=== PATIENT | male | born 1940 | race Caucasian/White ===

== ENCOUNTER 2016-05-10 16:56 | Emergency (ER) | payer BC ==
[2016-05-10 17:22] VITALS: BP 159/94; PULSE 79; TEMP 98.7; BMI 29.3
--- NOTE | 2016-05-10 18:22 | PDOC ---
History of Present Illness - History of Present Illness Initial Comments: 05/10/16 19:05 Patient is a 75 year old male with significant medical hx of asthma, DM, HTN, HLD, hypothyroidism, and chronic back pain who is presenting to the ED with right flank pain since he woke up this morning. The patient complains of severe right sided flank pain that is non-radiating and aggravated with movement. The patient reports that the pain is so intense that he has difficulty moving. The patient states that this pain is unlike his chronic back pain and is not relieved with his Flector patch, which normally relieves his back pain. The patient also reports some lower abdominal groin pain that occurred two days before the onset of his flank pain. Denies fever, chills, nausea, vomiting, diarrhea, frequency, urgency, hesitency , or hematuria. 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 JOSHUA/HUGH) Cholecystectomy: No Lung Surgery: No Neurologic Surgery: No Orthopedic Surgery: Yes (BILATERAL ARTHROSCOPY,ELBOW SX.) - Psycho/Social/Smoking Cessation Hx Suicidal Ideation: No Smoking Status: No Smoking History: Former smoker Have you smoked in the past 12 months: No Number of Cigarettes Smoked Daily: 0 If you are a former smoker, when did you quit?: 1984 Information on smoking cessation initiated: No Hx Alcohol Use: No Drug/Substance Use Hx: No Substance Use Type: Alcohol Hx Substance Use Treatment: No <RosalesTeresa Davis - Last Filed: 05/11/16 17:15> - Past Medical History Allergies/Adverse Reactions: Allergies Allergy/AdvReac Type Severity Reaction Status Date / Time latex Allergy Severe Rash Verified 05/10/16 17:16 Latex, Natural Rubber Allergy Severe Rash Verified 05/10/16 17:16 Home Medications: Ambulatory Orders Metoprolol Tartrate [Lopressor] 25 mg PO DAILY 08/06/11 Allopurinol 100 mg PO DAILY #0 tablet 08/11/11 Aspirin [Baby Aspirin] 81 mg PO DAILY #0 tab.chew 08/11/11 Simvastatin [Zocor] 40 mg PO DAILY #0 tablet 08/11/11 Amlodipine Besylate [Norvasc] 5 mg PO DAILY 10/12/11 Levothyroxine [Synthroid] 25 mcg PO DAILY 10/12/11 Cinnamon Bark [Cinnamon] 1,000 mg PO DAILY 07/19/13 Escitalopram Oxalate [Lexapro -] 10 mg PO DAILY 07/19/13 Gemfibrozil 600 mg PO DAILY 07/19/13 Gluc/Ky-MSM#1/Vit C/Fausto/Bor [Juksixy-Lytyy-DZC Complex Cplt] 1 each PO DAILY 07/19/13 Valsartan [Diovan] 160 mg PO DAILY 07/19/13 Budesonide/Formeterol Fumarate [SYMBICORT 80/4.5mcg -] 1 inh PO DAILY 08/21/13 Pantoprazole Sodium [Protonix -] 40 mg PO DAILY #30 tablet.ec 08/22/13 Ranitidine [Zantac -] 150 mg PO DAILY #0 tablet 08/22/13 Review of Systems - Review of Systems Comments:: 05/10/16 19:07 CONSTITUTIONAL: Absent: fever, chills, diaphoresis, generalized weakness, malaise, loss of appetite HEENT: Absent: rhinorrhea, nasal congestion, throat pain, throat swelling, difficulty swallowing, mouth swelling, ear pain, eye pain, visual changes CARDIOVASCULAR: Absent: chest pain, syncope, palpitations, irregular heart rate, lightheadedness , peripheral edema RESPIRATORY: Absent: cough, shortness of breath, dyspnea with exertion, orthopnea, wheezing, stridor, hemoptysis GASTROINTESTINAL: Present: lower abdominal pain Absent: abdominal distension, nausea, vomiting, diarrhea, constipation, melena, hematochezia GENITOURINARY: Present: right flank pain Absent: dysuria, frequency, urgency, hesitancy, hematuria, genital pain MUSCULOSKELETAL: Absent: myalgia, arthralgia, joint swelling SKIN: Absent: rash, itching, pallor HEMATOLOGIC/IMMUNOLOGIC: Absent: easy bleeding, easy bruising, lymphadenopathy, frequent infections ENDOCRINE: Absent: unexplained weight gain, unexplained weight loss, heat intolerance, cold intolerance NEUROLOGIC: Absent: headache, focal weakness or paresthesia, dizziness, unsteady gait, seizure, mental status changes, bladder or bowel incontinence. PSYCHIATRIC: Absent: anxiety, depression, suicidal or homicidal ideation, hallucinations <Fanny Miranda - Last Filed: 05/11/16 01:52> *Physical Exam - Vital Signs Last Vital Signs Temp Pulse Resp BP Pulse Ox 98.7 F 79 18 159/94 96 05/10/16 17:16 05/10/16 17:16 05/10/16 17:16 05/10/16 17:16 05/10/16 17:16 - Physical Exam Comments: 05/10/16 19:08 GENERAL: Well developed, well nourished. Awake and alert. No acute distress. HEENT: Normocephalic, atraumatic. PERRLA, EOMI. No conjunctival pallor. Sclera are non- icteric. Moist mucous membranes. Oropharynx is clear. NECK: Supple. Full ROM. No JVD. Carotid pulses 2+ and symmetric, without bruits. No thyromegaly. No lymphadenopathy. CARDIOVASCULAR: Regular rate and rhythm. No murmurs, rubs, or gallops. Distal pulses are 2+ and symmetric. PULMONARY: No evidence of respiratory distress. Lungs clear to auscultation bilaterally. No wheezing, rales or rhonchi. ABDOMINAL: Soft. Non-tender. Non-distended. No rebound or guarding. No organomegaly. Normoactive bowel sounds. MUSCULOSKELETAL: Right flank tenderness. Normal range of motion at all joints. No bony deformities or tenderness. EXTREMITIES: No cyanosis. No clubbing. No edema. No calf tenderness. SKIN: Warm and dry. Normal capillary refill. No rashes. No jaundice. NEUROLOGICAL: Alert, awake, appropriate. Neurologically intact. Cranial nerves 2-12 intact. Normal speech. PSYCHIATRIC: Cooperative. Good eye contact. Appropriate mood and affect. <Fanny Miranda - Last Filed: 05/11/16 01:52> - Vital Signs Last Vital Signs Temp Pulse Resp BP Pulse Ox 98.7 F 79 18 159/94 96 05/10/16 17:16 05/10/16 17:16 05/10/16 17:16 05/10/16 17:16 05/10/16 17:16 <Teresa Caba - Last Filed: 05/11/16 17:15> ED Treatment Course - LABORATORY CBC & Chemistry Diagram: 05/10/16 18:45 05/10/16 18:45 - ADDITIONAL ORDERS Additional order review: 05/10/16 18:45 RBC 5.30 MCV 93.9 MCHC 32.3 RDW 13.1 MPV 9.4 Neutrophils % 72.8 Lymphocytes % 15.0 D Monocytes % 10.1 Eosinophils % 1.6 Basophils % 0.5 - RADIOLOGY Radiograph Interpretation: 05/11/16 01:07 CT/Abdomen & Pelvis Impression: There is no aneurysmal dilatation or dissection of the included portion of the distal thoracic aorta and the abdominal aorta down through its bifurcation including the right and left common iliac artery. No acute process in the abdomen and pelvis. There is no evidence of small bowel obstruction. Reported By: Chandrika Arizmendi MD Addendum: The kidneys were again reviewed. Both kidneys appear unremarkable with normal enhancement and without evidence of hydroureteronephrosis or stone, bilaterally. There is minimal stranding of the perinephric fat, bilaterally which is nonspecific. Diverticulosis coli with minimal is stranding around the mid sigmoid colon likely residual chronic changes from the prior examination dated 08/07/2011 and less likely representing very minimal/early acute diverticulitis. Correlate clinically for further evaluation. 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 -however this pain was unusual for him -it was not in the usual spot -he denies any chest pain,sob,nausea,vomiting,diarrhea,fever or chills He denied any recent trauma He denied any dysuria, hematuria,, bladder or bowel incontinence,saddle anesthesia 05/11/16 02:11 UA negative,no hematuria ct scan w constrast -there was no evidence of dissection or aneurysm , no kidney stones,no hydronephrorosis -pt given pain meds -he was reassessed but still feels "very sore" <Teresa Caba - Last Filed: 05/11/16 17:15> *DC/Admit/Observation/Transfer - Attestations Scribe Attestion: 05/10/16 19:11 Documentation prepared by Fanny Miranda, acting as curator medical museum for Teresa Caba MD. <Fanny Miranda - Last Filed: 05/11/16 01:52> <Teresa Caba - Last Filed: 05/11/16 17:15> Diagnosis at time of Disposition: Right flank pain - Discharge Dispostion Disposition: HOME - Referrals Referrals: German Maravilla MD [Primary Care Provider] - - Patient Instructions Printed Discharge Instructions: DI for Flank Pain
[2016-05-10] MEDS ORDERED: SODIUM CHLORIDE 1,000 ML IV STA (18:33)
[2016-05-10] MEDS ORDERED: HYDROmorphone HCL CARPU-JECT 1 MG/1 ML DISP.SYRIN IVPB ONE (18:33)
[2016-05-10] MEDS ORDERED: HYDROmorphone HCL CARPU-JECT 1 MG/1 ML DISP.SYRIN ONE (18:44)
[2016-05-10 18:54] LABS: BASOPHIL 0.5 % (0-2.0); EOSINOPHIL 1.6 % (0-4.5); MCH 30.3 pg (25.7-33.7); MCHC 32.3 g/dl (32.0-35.9); MEAN CELL VOLUME 93.9 fl (80-96); MEAN PLT VOLUME 9.4 fl (7.5-11.1); NEUTROPHILS 72.8 % (42.8-82.8); PLATELET COUNT 210 K/MM3 (134-434); RDW 13.1 % (11.9-15.9); WHITE BLOOD COUNT 12.5 K/mm3 (4.0-10.0)
[2016-05-10 19:33] LABS: ALBUMIN 4.4 g/dl (3.4-5.0); ALK PHOS 42 U/L (45-117); ANION GAP 8 (8-16); BILIRUBIN,TOTAL 0.4 mg/dL (0.2-1.0); CALCIUM 9.7 mg/dL (8.5-10.1); CO2 28 mmol/L (21-32); CREATININE 0.9 mg/dL (0.7-1.3); GLUCOSE,RANDOM 107 mg/dL (74-106); SGOT/AST 16 U/L (15-37); SGPT/ALT 29 U/L (12-78); TOT PROT 7.5 g/dl (6.4-8.2)
[2016-05-10 19:40] LABS: INR 1.06 (0.82-1.09); PROTHROMBIN TIME (PATIENT) 11.7 SEC (9.98-11.88)
[2016-05-10 23:21] LABS: PH,URINE 5.5 (5.0-8.0); URINE APPEARANCE CLEAR; URINE BILIRUBIN NEGATIVE (NEGATIVE); URINE BLOOD NEGATIVE (NEGATIVE); URINE COLOR LT. YELLOW; URINE GLUCOSE (UA) NEGATIVE (NEGATIVE); URINE KETONE NEGATIVE (NEGATIVE); URINE LEUK ESTERASE NEGATIVE (NEGATIVE); URINE NITRITE NEGATIVE (NEGATIVE); URINE PROTEIN NEGATIVE (NEGATIVE); URINE UROBILINOGEN 0.2 E.U/dl E.U./dl (0.2-1.0)
[2016-05-11] MEDS ORDERED: KETOROLAC TROMETHAMINE 60 MG/2 ML VIAL IM ONE (00:13)
[2016-05-11] MEDS ORDERED: diazePAM 5 MG TABLET PO ONE (00:13)
[2016-05-11] MEDS ORDERED: KETOROLAC TROMETHAMINE 60 MG/2 ML VIAL ONE (00:28)
[2016-05-11] MEDS ORDERED: diazePAM 5 MG TABLET ONE (00:28)
[2016-05-11] MEDS ORDERED: CYCLOBENZAPRINE HCL 10 MG TABLET (FP) PO ONE (01:48)
--- NOTE | 2016-05-11 05:30 | PDOC ---
*Physical Exam - Vital Signs Last Vital Signs Temp Pulse Resp BP Pulse Ox 98.7 F 79 18 159/94 96 05/10/16 17:16 05/10/16 17:16 05/10/16 17:16 05/10/16 17:16 05/10/16 17:16 ED Treatment Course - LABORATORY CBC & Chemistry Diagram: 05/10/16 18:45 05/10/16 18:45 - ADDITIONAL ORDERS Additional order review: Laboratory Results 05/10/16 05/10/16 05/10/16 23:03 19:00 18:45 INR 1.06 Sodium 139 Potassium 4.2 Chloride 103 Carbon Dioxide 28 Anion Gap 8 BUN 17 D Creatinine 0.9 Creat Clearance w eGFR > 60 Random Glucose 107 H Calcium 9.7 Total Bilirubin 0.4 D AST 16 ALT 29 Alkaline Phosphatase 42 L Total Protein 7.5 Albumin 4.4 Urine Color Lt. yellow Urine Appearance Clear Urine pH 5.5 Ur Specific Donna 1.020 Urine Protein Negative Urine Glucose (UA) Negative Urine Ketones Negative Urine Blood Negative Urine Nitrite Negative Urine Bilirubin Negative Urine Urobilinogen 0.2 e.u/dl Ur Leukocyte Esterase Negative 05/10/16 18:45 RBC 5.30 MCV 93.9 MCHC 32.3 RDW 13.1 MPV 9.4 Neutrophils % 72.8 Lymphocytes % 15.0 D Monocytes % 10.1 Eosinophils % 1.6 Basophils % 0.5 - Medications Given in the ED: ED Medications Discontinued Medications Generic Name Dose Route Start Last Admin Trade Name Freq PRN Reason Stop Dose Admin Cyclobenzaprine HCl 10 mg 05/11/16 01:48 05/11/16 02:04 Flexeril - PO 05/11/16 01:49 10 mg ONCE ONE Administration Diazepam 5 mg 05/11/16 00:13 05/11/16 00:35 Valium - PO 05/11/16 00:14 5 mg ONCE ONE Administration Hydromorphone HCl 1 mg 05/10/16 18:33 05/10/16 18:47 Dilaudid Injection - IVPB 05/10/16 18:34 1 mg ONCE ONE Administration Sodium Chloride 1,000 mls @ 1,000 mls/hr 05/10/16 18:33 05/10/16 18:48 Normal Saline - IV 05/10/16 19:32 1,000 mls/hr ASDIR STA Administration Ketorolac Tromethamine 60 mg 05/11/16 00:13 05/11/16 00:35 Toradol Injection - IM 05/11/16 00:14 60 mg ONCE ONE Administration *DC/Admit/Observation/Transfer Diagnosis at time of Disposition: Right flank pain - Discharge Dispostion Disposition: HOME Condition at time of disposition: Stable Admit: No - Referrals Referrals: German Maravilla MD [Primary Care Provider] - - Patient Instructions Printed Discharge Instructions: DI for Flank Pain - Post Discharge Activity
[2016-05-11] MEDS ORDERED: KETOROLAC TROMETHAMINE 30 MG/1 ML VIAL IVPUSH ONE (05:32)
[2016-05-11] MEDS ORDERED: KETOROLAC TROMETHAMINE 30 MG/1 ML VIAL ONE (05:33)
== END 2016-05-11 05:37 | disposition home or self-care (01) ==
LOC: JER 16:56
PROC: 3E0337Z Introduction of Electrolytic and Water Balance Substance into Peripheral Vein, Percutaneous Approach (ICD-10-PCS; principal; 2016-05-10)
PROC: 3E0233Z Introduction of Anti-inflammatory into Muscle, Percutaneous Approach (ICD-10-PCS; 2016-05-10)
PROC: 3E033NZ Introduction of Analgesics, Hypnotics, Sedatives into Peripheral Vein, Percutaneous Approach (ICD-10-PCS; 2016-05-10)
DX: R10.31 Right lower quadrant pain (principal); I10 Essential (primary) hypertension; E11.9 Type 2 diabetes mellitus without complications; E78.00 Pure hypercholesterolemia, unspecified; E03.9 Hypothyroidism, unspecified
CPT/HCPCS: 36415; 74174-TC; 80053; 81003; 85025; 85610; 96361; 96372; 96374; 99282-25

== ENCOUNTER 2016-06-26 21:39 | Emergency (ER) | payer BC ==
[2016-06-26 21:45] VITALS: BP 138/74; PULSE 77; BMI 29.3
--- NOTE | 2016-06-26 22:14 | PDOC ---
[id number] 75 year old male with significant medical hx of asthma, GERD, DM, HTN, HLD, hypothyroidism, and chronic back pain who is presenting to the ED after an incident where the patient choked and fainted. This evening the patient choked on a piece of meat. He bent over the sink trying to cough it up, when he felt some of it come up and he passed out. The patient hit his head on the tile floor and regained consciousness moments later. He complains of swelling to the back of his head. The patient is not on any blood thinners. Denies chest pain, nausea and vomiting. Grain Drier Operator: Marisela Hill MD PCP: German Maravilla MD Surgical Hx: Bilateral arthroscopy, elbow surgery, bilateral inguinal hernia, stent x1 <Fanny Miranda - Last Filed: 06/27/16 00:08> <Deng David - Last Filed: 06/27/16 17:35> - General Chief Complaint: Choking Sensation Stated Complaint: SYNCOPE/HEAD INJURY Time Seen by Provider: 06/26/16 22:14 Past History <Fanny Miranda - Last Filed: 06/27/16 00:08> - Past Medical History Anemia: No Asthma: Yes (RARELY USES VENTOLIN OR SYMBICORT) Cancer: No Cardiac Disorders: No CVA: No COPD: No CHF: No Dementia: No Diabetes: Yes (NIDDM-NO MEDS X 6 MONTHS) GI Disorders: Yes (HX.COLON POLYP; DIVERTICULOSIS) Disorders: No HTN: Yes Hypercholesterolemia: Yes Liver Disease: No Seizures: No Thyroid Disease: Yes (HYPOTHYROID DISEASE) - Surgical History Abdominal Surgery: Yes (BILATERAL INGUINAL HERNIA) Appendectomy: No Cardiac Surgery: Yes (STENT X1 2006-LAST STRESS [address] JOSHUA/HUGH) Cholecystectomy: No Lung Surgery: No Neurologic Surgery: No Orthopedic Surgery: Yes (BILATERAL ARTHROSCOPY,ELBOW SX.) - Psycho/Social/Smoking Cessation Hx Suicidal Ideation: No Smoking Status: No Smoking History: Never smoked Have you smoked in the past 12 months: No Number of Cigarettes Smoked Daily: 0 If you are a former smoker, when did you quit?: 1984 Information on smoking cessation initiated: No Hx Alcohol Use: No Drug/Substance Use Hx: No Substance Use Type: Alcohol Hx Substance Use Treatment: No <Deng David - Last Filed: 06/27/16 17:35> - Past Medical History Allergies/Adverse Reactions: Allergies Allergy/AdvReac Type Severity Reaction Status Date / Time latex Allergy Severe Rash Verified 06/26/16 21:44 Latex, Natural Rubber Allergy Severe Rash Verified 06/26/16 21:44 Home Medications: Ambulatory Orders Metoprolol Tartrate [Lopressor] 25 mg PO DAILY 08/06/11 Allopurinol 100 mg PO DAILY #0 tablet 08/11/11 Aspirin [Baby Aspirin] 81 mg PO DAILY #0 tab.chew 08/11/11 Simvastatin [Zocor] 40 mg PO DAILY #0 tablet 08/11/11 Amlodipine Besylate [Norvasc] 5 mg PO DAILY 10/12/11 Levothyroxine [Synthroid] 25 mcg PO DAILY 10/12/11 Cinnamon Bark [Cinnamon] 1,000 mg PO DAILY 07/19/13 Escitalopram Oxalate [Lexapro -] 10 mg PO DAILY 07/19/13 Gemfibrozil 600 mg PO DAILY 07/19/13 Gluc/Ky-MSM#1/Vit C/Fausto/Bor [Kugjwgx-Xeilm-XHO Complex Cplt] 1 each PO DAILY 07/19/13 Valsartan [Diovan] 160 mg PO DAILY 07/19/13 Budesonide/Formeterol Fumarate [SYMBICORT 80/4.5mcg -] 1 inh PO DAILY 08/21/13 Pantoprazole Sodium [Protonix -] 40 mg PO DAILY #30 tablet.ec 08/22/13 Ranitidine [Zantac -] 150 mg PO DAILY #0 tablet 08/22/13 Review of Systems - Review of Systems Comments:: 06/26/16 22:33 CONSTITUTIONAL: Absent: fever, chills, diaphoresis, generalized weakness, malaise, loss of appetite HEENT: Present: swelling to the back of his head Absent: rhinorrhea, nasal congestion, throat pain, throat swelling, difficulty swallowing, mouth swelling, ear pain, eye pain, visual changes CARDIOVASCULAR: Absent: chest pain, syncope, palpitations, irregular heart rate, lightheadedness , peripheral edema RESPIRATORY: Absent: cough, shortness of breath, dyspnea with exertion, orthopnea, wheezing, stridor, hemoptysis GASTROINTESTINAL: Absent: abdominal pain, abdominal distension, nausea, vomiting, diarrhea, constipation, melena, hematochezia GENITOURINARY: Absent: dysuria, frequency, urgency, hesitancy, hematuria, flank pain, genital pain MUSCULOSKELETAL: Absent: myalgia, arthralgia, joint swelling SKIN: Absent: rash, itching, pallor HEMATOLOGIC/IMMUNOLOGIC: Absent: easy bleeding, easy bruising, lymphadenopathy, frequent infections ENDOCRINE: Absent: unexplained weight gain, unexplained weight loss, heat intolerance, cold intolerance NEUROLOGIC: Present: loss of consciousness Absent: headache, focal weakness or paresthesia, dizziness, unsteady gait, seizure, mental status changes, bladder or bowel incontinence. PSYCHIATRIC: Absent: anxiety, depression, suicidal or homicidal ideation, hallucinations <Fanny Miranda - Last Filed: 06/27/16 00:08> *Physical Exam - Vital Signs Last Vital Signs Temp Pulse Resp BP Pulse Ox 77 18 138/74 99 06/26/16 21:42 06/26/16 21:42 06/26/16 21:42 06/26/16 21:42 - Physical Exam Comments: 06/26/16 22:34 GENERAL: Well developed, well nourished. Awake and alert. No acute distress. HEENT: Normocephalic. Bruising to the left occiput. PERRLA, EOMI. No conjunctival pallor. Sclera are non-icteric. Moist mucous membranes. Oropharynx is clear. NECK: Supple. Full ROM. No JVD. Carotid pulses 2+ and symmetric, without bruits. No thyromegaly. No lymphadenopathy. CARDIOVASCULAR: Regular rate and rhythm. No murmurs, rubs, or gallops. Distal pulses are 2+ and symmetric. PULMONARY: No evidence of respiratory distress. Lungs clear to auscultation bilaterally. No wheezing, rales or rhonchi. ABDOMINAL: Soft. Non-tender. Non-distended. No rebound or guarding. No organomegaly. Normoactive bowel sounds. MUSCULOSKELETAL: Normal range of motion at all joints. No bony deformities or tenderness. No CVA tenderness. EXTREMITIES: No cyanosis. No clubbing. No edema. No calf tenderness. SKIN: Warm and dry. Normal capillary refill. No rashes. No jaundice. NEUROLOGICAL: Alert, awake, appropriate. Cranial nerves 2-12 intact. Normal speech. Gait is normal without ataxia. PSYCHIATRIC: Cooperative. Good eye contact. Appropriate mood and affect. <Fanny Miranda - Last Filed: 06/27/16 00:08> - Vital Signs Last Vital Signs Temp Pulse Resp BP Pulse Ox 77 18 138/74 99 06/26/16 21:42 06/26/16 21:42 06/26/16 21:42 06/26/16 21:42 <CesarfabbyDeng zhong - Last Filed: 06/27/16 17:35> Heart Score/ECG Review #1 06/26/16 23:12 Normal sinus rhythm at 71 bpm Right bundle branch block Abnormal ECG <Fanny Miranda - Last Filed: 06/27/16 00:08> ED Treatment Course - LABORATORY CBC & Chemistry Diagram: 06/26/16 22:30 06/26/16 22:30 - RADIOLOGY Radiograph Interpretation: 06/27/16 00:09 Platform Power Technician: (tracy) Report Date: 06/26/2016 23:22:00 Report Status: Preliminary Begin of Report Content Referring Physician: Dung Gan Patient Name: Ebonie Mendez THIS IS A PRELIMINARYREPORT FROM IMAGING TELEGRAPHIC INSTRUMENT SUPERVISOR EXAM: CT brain without contrast IMAGES: 70 INDICATION: Severe headache DATE OF SERVICE: 2016-06-26 23:22:47.0 COMPARISON: none FINDINGS: The ventricular system is midline and nondilated. The sulcal pattern is normal for the patient's age. Minimal small vessel ischemic changes are noted. There is no bleed, mass, extra-axial fluid collection or mass effect. No skull fracture or skull lesion is identified. The visualized paranasal sinuses and mastoid air cells are clear other than minimal sinus mucosal thickening. IMPRESSION: No evidence of acute pathology. THIS DOCUMENT HAS BEEN ELECTRONICALLY SIGNED Pool Swanson MD 06/26/2016 23:40 EST M.D. Please call Imaging Cardroom Manager [phone] ([phone]) with questions. End of Report Content <Fanny Miranda - Last Filed: 06/27/16 00:08> - LABORATORY CBC & Chemistry Diagram: 06/26/16 22:30 06/26/16 22:30 <Deng David - Last Filed: 06/27/16 17:35> *DC/Admit/Observation/Transfer - Attestations Scribe Attestion: 06/26/16 22:35 Documentation prepared by Fanny Miranda, acting as medical resident for Deng David MD. <Fanny Miranda - Last Filed: 06/27/16 00:08> - Discharge Dispostion Admit: No <Deng David - Last Filed: 06/27/16 17:35> Diagnosis at time of Disposition: Falls, Injury of head Syncope Qualifiers: Syncope type: vasovagal syncope Qualified Code(s): R55 - Syncope and collapse - Discharge Dispostion Disposition: AGAINST MEDICAL ADVICE Condition at time of disposition: Guarded - Referrals Referrals: German Maravilla MD [Primary Care Provider] - - Patient Instructions Printed Discharge Instructions: DI for Syncope in Adults (Fainting), DI for Closed Head Injury Additional Instructions: you are signing out against medical advice; see your doctor Tuesday. If you change your mind, please return to the ED.
[2016-06-26 23:06] LABS: BASOPHIL 0.7 % (0-2.0); EOSINOPHIL 3.1 % (0-4.5); MCH 32.2 pg (25.7-33.7); MCHC 34.7 g/dl (32.0-35.9); MEAN CELL VOLUME 92.7 fl (80-96); MEAN PLT VOLUME 9.1 fl (7.5-11.1); NEUTROPHILS 64.1 % (42.8-82.8); PLATELET COUNT 197 K/MM3 (134-434); RDW 13.2 % (11.9-15.9); WHITE BLOOD COUNT 10.7 K/mm3 (4.0-10.0)
[2016-06-26 23:35] LABS: ALBUMIN 3.9 g/dl (3.4-5.0); ANION GAP 10 (8-16); BILIRUBIN,TOTAL 0.4 mg/dL (0.2-1.0); CALCIUM 8.9 mg/dL (8.5-10.1); CO2 28 mmol/L (21-32); CREATININE 1.1 mg/dL (0.7-1.3); GLUCOSE,RANDOM 162 mg/dL (74-106); SGOT/AST 20 U/L (15-37); SGPT/ALT 36 U/L (12-78); TOT PROT 6.9 g/dl (6.4-8.2)
[2016-06-26 23:37] LABS: ALK PHOS 43 U/L (45-117); TROPONIN I < 0.02 ng/ml (0.00-0.05)
[2016-06-27] MEDS ORDERED: ACETAMINOPHEN 325 MG TABLET (FP) ONE (01:04)
--- NOTE | 2016-06-27 18:14 | EKG ---
Test Reason : Blood Pressure : / mmHG Vent. Rate : 071 BPM Atrial Rate : 071 BPM P-R Int : 158 ms QRS Dur : 136 ms QT Int : 400 ms P-R-T Axes : 070 071 052 degrees QTc Int : 434 ms NORMAL SINUS RHYTHM RIGHT BUNDLE BRANCH BLOCK ABNORMAL ECG WHEN COMPARED WITH ECG OF 05-AUG-2011 18:21, NO SIGNIFICANT CHANGE WAS FOUND Confirmed by FROILAN BUSBY MD ([id number]) on 06/27/2016 6:14:02 PM Referred By: Confirmed By:FROILAN BUSBY MD
== END 2016-06-27 03:25 | disposition left against medical advice (07) ==
LOC: JER 21:39
DX: S09.8XXA Other specified injuries of head, initial encounter (principal); R55 Syncope and collapse; S00.03XA Contusion of scalp, initial encounter; T17.828A Food in other parts of respiratory tract causing other injury, initial encounter; W01.198A Fall on same level from slipping, tripping and stumbling with subsequent striking against other object, initial encounter; I10 Essential (primary) hypertension; E11.9 Type 2 diabetes mellitus without complications; E78.00 Pure hypercholesterolemia, unspecified; J45.909 Unspecified asthma, uncomplicated; E03.9 Hypothyroidism, unspecified; Z95.5 Presence of coronary angioplasty implant and graft; Z87.891 Personal history of nicotine dependence
CPT/HCPCS: 36415; 70450-TC; 71010-TC; 80053; 82550; 84484; 85025; 93005; 93010; 99282-25

== ENCOUNTER 2016-09-14 16:04 | Emergency (ER) | payer BC ==
[2016-09-14 16:15] VITALS: BP 154/85; PULSE 91; TEMP 97.6; BMI 29.0
[2016-09-14] MEDS ORDERED: KETOROLAC TROMETHAMINE 30 MG/1 ML VIAL ONE (17:31)
[2016-09-14] MEDS ORDERED: diazePAM 5 MG TABLET ONE (17:32)
--- NOTE | 2016-09-14 17:45 | PDOC ---
History of Present Illness - General Chief Complaint: Pain, Acute Stated Complaint: STIFF NECK/BACK Time Seen by Provider: 09/14/16 16:44 History Source: Patient - History of Present Illness Timing/Duration: getting worse Associated Symptoms: denies: fever/chills, headaches, nausea/vomiting, weakness Past History - Past Medical History Allergies/Adverse Reactions: Allergies Allergy/AdvReac Type Severity Reaction Status Date / Time latex Allergy Severe Rash Verified 09/14/16 16:15 Latex, Natural Rubber Allergy Severe Rash Verified 09/14/16 16:15 Home Medications: Ambulatory Orders Metoprolol Tartrate [Lopressor] 25 mg PO DAILY 08/06/11 Allopurinol 100 mg PO DAILY #0 tablet 08/11/11 Aspirin [Baby Aspirin] 81 mg PO DAILY #0 tab.chew 08/11/11 Simvastatin [Zocor] 40 mg PO DAILY #0 tablet 08/11/11 Amlodipine Besylate [Norvasc] 5 mg PO DAILY 10/12/11 Levothyroxine [Synthroid] 25 mcg PO DAILY 10/12/11 Cinnamon Bark [Cinnamon] 1,000 mg PO DAILY 07/19/13 Escitalopram Oxalate [Lexapro -] 10 mg PO DAILY 07/19/13 Gemfibrozil 600 mg PO DAILY 07/19/13 Gluc/Ky-MSM#1/Vit C/Fausto/Bor [Ergdzgq-Lgiyp-GQN Complex Cplt] 1 each PO DAILY 07/19/13 Valsartan [Diovan] 160 mg PO DAILY 07/19/13 Budesonide/Formeterol Fumarate [SYMBICORT 80/4.5mcg -] 1 inh PO DAILY 08/21/13 Pantoprazole Sodium [Protonix -] 40 mg PO DAILY #30 tablet.ec 08/22/13 Ranitidine [Zantac -] 150 mg PO DAILY #0 tablet 08/22/13 Tramadol HCl 50 mg PO Q6H #15 tablet MDD 200 mg 09/14/16 Anemia: No Asthma: Yes (RARELY USES VENTOLIN OR SYMBICORT) Cancer: No Cardiac Disorders: No CVA: No COPD: No CHF: No Dementia: No Diabetes: Yes (NIDDM-NO MEDS X 6 MONTHS) GI Disorders: Yes (HX.COLON POLYP; DIVERTICULOSIS) Disorders: No HTN: Yes Hypercholesterolemia: Yes Liver Disease: No Seizures: No Thyroid Disease: Yes (HYPOTHYROID DISEASE) - Surgical History Abdominal Surgery: Yes (BILATERAL INGUINAL HERNIA) Appendectomy: No Cardiac Surgery: Yes (STENT X1 2006-LAST STRESS [address] JOSHUA/HUGH) Cholecystectomy: No Lung Surgery: No Neurologic Surgery: No Orthopedic Surgery: Yes (BILATERAL ARTHROSCOPY,ELBOW SX.) - Psycho/Social/Smoking Cessation Hx Suicidal Ideation: No Smoking Status: No Smoking History: Never smoked Have you smoked in the past 12 months: No Number of Cigarettes Smoked Daily: 0 If you are a former smoker, when did you quit?: 1984 Information on smoking cessation initiated: No Hx Alcohol Use: No Drug/Substance Use Hx: No Substance Use Type: Alcohol Hx Substance Use Treatment: No Review of Systems - Review of Systems Constitutional: No: Chills, Fever ABD/GI: No: Nausea, Vomiting Musculoskeletal: Yes: Neck Pain Neurological: No: Headache, Numbness, Tingling, Weakness, Dizziness *Physical Exam - Vital Signs Last Vital Signs Temp Pulse Resp BP Pulse Ox 97.6 F 91 H 18 154/85 98 09/14/16 16:12 09/14/16 16:12 09/14/16 16:12 09/14/16 16:12 09/14/16 16:12 - Physical Exam Comments: 09/14/16 17:45 appears uncomfortable General Appearance: Yes: Appropriately Dressed HEENT: positive: Normal Voice Neck: positive: Tender (+ttp to lateral aspect of neck b/l, LROM 2/2 pain, upper extremity strength intact b/l). negative: Lymphadenopathy (R), Lymphadenopathy (L) Respiratory/Chest: negative: Respiratory Distress Integumentary: positive: Dry, Warm Neurologic: positive: Fully Oriented, Alert, Normal Mood/Affect, Motor Strength 5/5 Medical Decision Making - Medical Decision Making 09/14/16 17:34 75-year-old male, history of hypertension, hypercholesterolemia, CAD with stent x 1, diabetes, chronic lower back pain, presents to ED with neck pain. Patient states he awoke with pain to posterior aspect of neck diffusely this a.m, worse with any movement. Taking Aleve with no relief. States pain has progressively worsened throughout the day. No headache, dizziness, visual changes, n/v, upper extremity sensory changes, extremity weakness, URI symptoms, fever or chill. See exam Neck pain on awakening this am No red flags on exam, i.e radiculopathy, infxn, dissection, etc M/l MSK -pain meds, reassess 09/14/16 17:49 09/14/16 19:04 Pt reports improvement in pain. Stable for discharge at this time *DC/Admit/Observation/Transfer Diagnosis at time of Disposition: Neck strain Qualifiers: Encounter type: initial encounter Qualified Code(s): S16.1XXA - Strain of muscle, fascia and tendon at neck level, initial encounter - Discharge Dispostion Disposition: HOME Condition at time of disposition: Good - Prescriptions Prescriptions: Tramadol HCl 50 mg PO Q6H #15 tablet MDD 200 mg - Patient Instructions Printed Discharge Instructions: Muscle Strain Additional Instructions: Take medication as directed Please follow up with your PMD
[2016-09-14] MEDS ORDERED: diazePAM 5 MG TABLET PO ONE ×2 (17:56→18:21)
[2016-09-14] MEDS ORDERED: KETOROLAC TROMETHAMINE 30 MG/1 ML VIAL IM ONE ×2 (17:57→18:21)
[2016-09-14] MEDS ORDERED: traMADol HCL 50 MG TABLET PO ONE (18:21)
[2016-09-14] MEDS ORDERED: traMADol HCL 50 MG TABLET ONE (18:23)
== END 2016-09-14 19:18 | disposition home or self-care (01) ==
LOC: JERFT 16:04
PROC: 3E0233Z Introduction of Anti-inflammatory into Muscle, Percutaneous Approach (ICD-10-PCS; principal; 2016-09-14)
PROC: 3E0233Z Introduction of Anti-inflammatory into Muscle, Percutaneous Approach (ICD-10-PCS; 2016-09-14)
DX: S16.1XXA Strain of muscle, fascia and tendon at neck level, initial encounter (principal); I25.10 Atherosclerotic heart disease of native coronary artery without angina pectoris; I10 Essential (primary) hypertension; Z95.5 Presence of coronary angioplasty implant and graft; E11.9 Type 2 diabetes mellitus without complications; Z79.84 Long term (current) use of oral hypoglycemic drugs; E78.00 Pure hypercholesterolemia, unspecified; E03.9 Hypothyroidism, unspecified; M54.5 Low back pain; G89.29 Other chronic pain
CPT/HCPCS: 96372; 99281-25

== ENCOUNTER 2016-09-16 06:47 | Emergency (ER) | payer BC ==
[2016-09-16 07:11] VITALS: PULSE 84; BMI 29.0
[2016-09-16] MEDS ORDERED: OXYCODONE/APAP 5/325MG COMBO TABLET PO ONE (07:55)
[2016-09-16] MEDS ORDERED: diazePAM 5 MG TABLET PO ONE (07:55)
[2016-09-16] MEDS ORDERED: OXYCODONE/APAP 5/325MG COMBO TABLET ONE (08:00)
[2016-09-16] MEDS ORDERED: diazePAM 5 MG TABLET ONE (08:00)
--- NOTE | 2016-09-16 08:52 | PDOC ---
History of Present Illness - General Chief Complaint: Pain Stated Complaint: NECK PAIN Time Seen by Provider: 09/16/16 07:34 History Source: Patient Exam Limitations: No Limitations - History of Present Illness Initial Comments: 09/16/16 08:49 75-year-old male presents to the emergency room with complaints of continual neck stiffness. Patient states was seen here 2 days ago and was given an injection including a muscle relaxer which seemed to alleviate his symptoms slightly but when he went home to take the tramadol he says symptoms returned. Patient states he awoke with this discomfort 2 days ago and feels tight sharp feeling with movement in any direction. Patient denies headache, dizziness, nausea, visual changes, fever, difficulty swallowing, chest pain or shortness of breath. Patient denies rash or swelling to the area. Patient states has history of back spasms due to herniation and has had a similar episode to his cervical region but did not last this long. Timing/Duration: other Severity: moderate Associated Symptoms: denies: denies symptoms Past History - Past Medical History Allergies/Adverse Reactions: Allergies Allergy/AdvReac Type Severity Reaction Status Date / Time latex Allergy Severe Rash Verified 09/16/16 07:09 Latex, Natural Rubber Allergy Severe Rash Verified 09/16/16 07:09 Home Medications: Ambulatory Orders Metoprolol Tartrate [Lopressor] 25 mg PO DAILY 08/06/11 Allopurinol 100 mg PO DAILY #0 tablet 08/11/11 Aspirin [Baby Aspirin] 81 mg PO DAILY #0 tab.chew 08/11/11 Simvastatin [Zocor] 40 mg PO DAILY #0 tablet 08/11/11 Amlodipine Besylate [Norvasc] 5 mg PO DAILY 10/12/11 Levothyroxine [Synthroid] 25 mcg PO DAILY 10/12/11 Cinnamon Bark [Cinnamon] 1,000 mg PO DAILY 07/19/13 Escitalopram Oxalate [Lexapro -] 10 mg PO DAILY 07/19/13 Gemfibrozil 600 mg PO DAILY 07/19/13 Gluc/Ky-MSM#1/Vit C/Fausto/Bor [Ltpakrj-Cbsdv-WQJ Complex Cplt] 1 each PO DAILY 07/19/13 Valsartan [Diovan] 160 mg PO DAILY 07/19/13 Budesonide/Formeterol Fumarate [SYMBICORT 80/4.5mcg -] 1 inh PO DAILY 08/21/13 Pantoprazole Sodium [Protonix -] 40 mg PO DAILY #30 tablet.ec 08/22/13 Ranitidine [Zantac -] 150 mg PO DAILY #0 tablet 08/22/13 Tramadol HCl 50 mg PO Q6H #15 tablet MDD 200 mg 09/14/16 Anemia: No Asthma: Yes (RARELY USES VENTOLIN OR SYMBICORT) Cancer: No Cardiac Disorders: No CVA: No COPD: No CHF: No Dementia: No Diabetes: Yes (NIDDM-NO MEDS X 6 MONTHS) GI Disorders: Yes (HX.COLON POLYP; DIVERTICULOSIS) Disorders: No HTN: Yes Hypercholesterolemia: Yes Liver Disease: No Seizures: No Thyroid Disease: Yes (HYPOTHYROID DISEASE) - Surgical History Abdominal Surgery: Yes (BILATERAL INGUINAL HERNIA) Appendectomy: No Cardiac Surgery: Yes (STENT X1 2006-LAST STRESS [address] JOSHUA/HUGH) Cholecystectomy: No Lung Surgery: No Neurologic Surgery: No Orthopedic Surgery: Yes (BILATERAL ARTHROSCOPY,ELBOW SX.) - Psycho/Social/Smoking Cessation Hx Anxiety: No Suicidal Ideation: No Smoking Status: No Smoking History: Never smoked Have you smoked in the past 12 months: No Number of Cigarettes Smoked Daily: 0 If you are a former smoker, when did you quit?: 1984 Information on smoking cessation initiated: No Hx Alcohol Use: No Drug/Substance Use Hx: No Substance Use Type: Alcohol Hx Substance Use Treatment: No Patient Lives Alone: No Review of Systems - Review of Systems Able to Perform ROS?: Yes Constitutional: No: Symptoms Reported HEENTM: No: Symptoms Reported Respiratory: No: Symptoms reported Cardiac (ROS): No: Symptoms Reported : No: Frequency Musculoskeletal: Yes: Neck Pain, Joint Stiffness Integumentary: No: Symptoms Reported Neurological: No: Headache, Numbness, Dizziness Endocrine: No: Symptoms Reported Hematologic/Lymphatic: No: Symptoms Reported *Physical Exam - Vital Signs Last Vital Signs Temp Pulse Resp BP Pulse Ox 97.5 F L 84 18 131/83 99 09/16/16 07:09 09/16/16 07:09 09/16/16 07:09 09/16/16 07:09 09/16/16 07:09 - Physical Exam General Appearance: Yes: Nourished, Appropriately Dressed. No: Apparent Distress HEENT: positive: EOMI, JANETH, Pharynx Normal. negative: Pale Conjunctivae Neck: positive: Tender (bilateral SCM), Supple, Decreased range of motion ( unable to rotate, flex or hyperextend) Respiratory/Chest: positive: Lungs Clear, Normal Breath Sounds. negative: Respiratory Distress, Accessory Muscle Use Cardiovascular: positive: Regular Rhythm, Regular Rate. negative: Murmur Integumentary: positive: Normal Color, Warm, Moist Neurologic: positive: Motor Strength 5/5 (ambulatory) ED Treatment Course - RADIOLOGY Radiology Studies Ordered: Category Date Time Status SPINE-CERVICAL [RAD] Stat Radiology 09/16/16 07:56 Taken - Medications Given in the ED: ED Medications Discontinued Medications Generic Name Dose Route Start Last Admin Trade Name Freq PRN Reason Stop Dose Admin Diazepam 5 mg 09/16/16 07:55 09/16/16 08:10 Valium - PO 09/16/16 07:56 5 mg ONCE ONE Administration Oxycodone/Acetaminophen 1 combo 09/16/16 07:55 09/16/16 08:10 Percocet 5/325 - PO 09/16/16 07:56 1 combo ONCE ONE Administration Medical Decision Making - Medical Decision Making 09/16/16 08:57 Patient here continual neck stiffness the past 2 days. Patient states the child although he was sent home with is not alleviating his symptoms and is requesting something stronger. Pt ordered for Valium and Percocet along with a cervical x-ray. 09/16/16 09:13 X-ray shows no acute bony abnormalities. There is multilevel chronic degenerative discogenic disease , facet joint after his bath he with mild degenerative and spondylolisthesis at C3, C4 C5 C6. Patient will be discharged home with Percocet and Valium along with supportive care. *DC/Admit/Observation/Transfer Diagnosis at time of Disposition: Stiff neck - Discharge Dispostion Disposition: HOME Condition at time of disposition: Improved - Referrals Referrals: Petar Moralez MD [Staff Physician] - German Maravilla MD [Primary Care Provider] - - Patient Instructions Printed Discharge Instructions: DI for Neck Pain Additional Instructions: I recommend you continue Valium for the next 3 days twice a day along with the Percocet. Also please provide your neck with support either with a pillow or with the neck brace that you have at home for the next 3 days
[2016-09-16 09:28] VITALS: BP 140/84; TEMP 98.1
== END 2016-09-16 09:29 | disposition home or self-care (01) ==
LOC: JER 06:47
DX: M43.6 Torticollis (principal); I25.10 Atherosclerotic heart disease of native coronary artery without angina pectoris; I10 Essential (primary) hypertension; Z95.5 Presence of coronary angioplasty implant and graft; E11.9 Type 2 diabetes mellitus without complications; Z79.84 Long term (current) use of oral hypoglycemic drugs; J45.909 Unspecified asthma, uncomplicated; E03.9 Hypothyroidism, unspecified
CPT/HCPCS: 72050-TC; 99282-25

== ENCOUNTER 2016-09-24 05:11 | Day surgery (SDC) | payer BC ==
[2016-09-24 12:35] VITALS: BMI 29.0
[2016-09-24] MEDS ORDERED: PROPOFOL 20 ML ONE ×2 (13:41)
[2016-09-24] MEDS ORDERED: LIDOCAINE HCL/PF 2% SDV 5ML VIAL ONE (13:42)
[2016-09-24] MEDS ORDERED: ALBUTEROL SO4 2.5/IPRATROPIUM 0.5 INH SOL 3 ML VIAL.NEB. NEB ONE (14:22)
[2016-09-24 14:28] VITALS: TEMP 97.5
[2016-09-24] MEDS ORDERED: ALBUTEROL SO4 0.083% IH SOL 2.5 MG/3 ML VIAL.NEB. NEB ONE (14:35)
[2016-09-24 16:01] VITALS: BP 137/85; PULSE 75
--- NOTE | 2016-09-29 11:39 | PATH ---
Surgical Pathology Report Patient Name: RITO LEWIS [facility]. Rec. #: [id number] /Age/Gender: 1940 (Age: 75) / M Account: [id number] Location: [facility] Taken: 09/24/2016 Received: 09/28/2016 Reported: 09/29/2016 Physicians: Marisela Jorge M.D. Specimen(s) Received A: BX MID DUODENUM & DUODENAL BULB B: BX ANTRUM C: BX DISTAL ESOPHAGUS Clinical History Dysphagia, history of colon polyp Gastritis, GERD, colon diverticula Final Diagnosis A. DUODENUM, SECOND PORTION AND BULB, BIOPSY: DUODENAL MUCOSA WITH CHRONIC INFLAMMATION. NO HISTOLOGIC EVIDENCE OF GLUTEN SENSITIVE ENTEROPATHY (CELIAC DISEASE). B. STOMACH, ANTRUM, BIOPSY: GASTRIC ANTRAL MUCOSA WITH MODERATE CHRONIC GASTRITIS AND FOVEOLAR HYPERPLASIA. IMMUNOSTAIN FOR H. PYLORI IS NEGATIVE FOR ORGANISMS. C. ESOPHAGUS, DISTAL, BIOPSY: SQUAMOUS AND FOCAL COLUMNAR GASTRIC TYPE MUCOSA WITH CHRONIC INFLAMMATION AND REFLUX TYPE CHANGES. NO INTESTINAL METAPLASIA (JIMENEZ'S ESOPHAGUS) IDENTIFIED. Electronically Signed Lucas Marks M.D. Gross Description A. Received in formalin, labeled "biopsy second portion of duodenum and duodenal bulb" are 2 funez, irregular portions of soft tissue measuring 0.3 and 0.5 cm in greatest dimension. The specimens are submitted in toto in one cassette. B. Received in formalin, labeled "biopsy antrum" are 2 funez, irregular portions of soft tissue measuring 0.4 and 0.6 cm in greatest dimension. The specimens are submitted in toto in one cassette. C. Received in formalin, labeled "biopsy distal esophagus" are 2 funez, irregular portions of soft tissue averaging 0.3 cm in greatest dimension. The specimens are submitted in toto in one cassette. 09/28/2016 saudi09/28/2016
== END 2016-09-24 15:55 | disposition home or self-care (01) ==
LOC: JASU-ENDO 05:11
PROVIDERS: ATTEND Internal Medicine Gastroenterology
PROC: 0DB68ZX Excision of Stomach, Via Natural or Artificial Opening Endoscopic, Diagnostic (ICD-10-PCS; 2016-09-24)
PROC: 0DB28ZX Excision of Middle Esophagus, Via Natural or Artificial Opening Endoscopic, Diagnostic (ICD-10-PCS; 2016-09-24)
PROC: 0DB38ZX Excision of Lower Esophagus, Via Natural or Artificial Opening Endoscopic, Diagnostic (ICD-10-PCS; 2016-09-24)
PROC: 0DJD8ZZ Inspection of Lower Intestinal Tract, Via Natural or Artificial Opening Endoscopic (ICD-10-PCS; principal; 2016-09-24 13:00)
PROC: 0DB98ZX Excision of Duodenum, Via Natural or Artificial Opening Endoscopic, Diagnostic (ICD-10-PCS; 2016-09-24 13:00)
DX: Z12.11 Encounter for screening for malignant neoplasm of colon (principal); Z86.010 Personal history of colon polyps; K57.30 Diverticulosis of large intestine without perforation or abscess without bleeding; K64.8 Other hemorrhoids; K21.9 Gastro-esophageal reflux disease without esophagitis; K25.9 Gastric ulcer, unspecified as acute or chronic, without hemorrhage or perforation; K44.9 Diaphragmatic hernia without obstruction or gangrene; K29.80 Duodenitis without bleeding
CPT/HCPCS: 43239; G0105; 88305-TC; 88342-TC; 94640

== ENCOUNTER 2017-11-22 06:22 | Inpatient (IN) | payer OTHER ==
[2017-11-08 12:30] VITALS: BMI 29.0
[2017-11-22] MEDS ORDERED: CELECOXIB 200 MG CAPSULE PO ONE (06:45)
[2017-11-22] MEDS ORDERED: GABAPENTIN 300 MG CAPSULE (FP) PO ONE (06:45)
[2017-11-22] MEDS ORDERED: CEFAZOLIN 2 GM in DEXTROSE 5%-WATER - 50 ML IVPB ONE (06:45)
[2017-11-22] MEDS ORDERED: oxyCODONE HCL 10 MG SUSTAINED ACTING TABLET PO ONE (06:45)
[2017-11-22] MEDS ORDERED: VANCOMYCIN 1,000 MG VIAL (RESTRICTED TO ID ONLY) ONE (07:30)
[2017-11-22] MEDS ORDERED: ceFAZolin SODIUM 1 GM VIAL ONE ×3 (07:30→09:50)
[2017-11-22] MEDS ORDERED: SUCCINYLCHOLINE CHLORIDE 200 MG/10 ML VIAL ONE ×2 (07:39→09:06)
[2017-11-22] MEDS ORDERED: PROPOFOL 20 ML ONE (07:39)
[2017-11-22] MEDS ORDERED: ONDANSETRON 4 MG/2 ML VIAL ONE (07:40)
[2017-11-22] MEDS ORDERED: LIDOCAINE HCL/PF 2% SDV 5ML VIAL ONE ×2 (07:40→09:51)
--- NOTE | 2017-11-22 07:57 | HP ---
Satellite [facility] - Chief Complaint Chief Complaint: right hip pain - Past Medical History Allergies/Adverse Reactions: Allergies Allergy/AdvReac Type Severity Reaction Status Date / Time latex Allergy Severe Rash Verified 11/08/17 12:05 Latex, Natural Rubber Allergy Severe Rash Verified 11/08/17 12:05 - Current Medications Current Medications: Home Medications Medication Instructions Recorded Aspirin [Baby Aspirin] 81 mg PO DAILY #0 tab.chew 08/11/11 Amlodipine Besylate [Norvasc -] 5 mg PO DAILY 10/12/11 Levothyroxine [Synthroid -] 25 mcg PO DAILY 10/12/11 Escitalopram Oxalate [Lexapro -] 10 mg PO DAILY 07/19/13 Gemfibrozil 600 mg PO DAILY 07/19/13 Valsartan [Diovan] 160 mg PO DAILY 07/19/13 Allopurinol 100 mg PO DAILY 09/24/16 Mv-Min/FA/Vit K/Lycop/Lut/Zeax 1 each PO DAILY 09/24/16 [Ocuvite Eye Plus Multi Tablet] Morris-3/Dha/Epa/Fish Oil [Fish Oil 1,000 mg PO DAILY 09/24/16 1,000 mg Softgel] Sitagliptin Phos/Metformin HCl 1 each PO BID 09/24/16 [Janumet 50-1,000 mg Tablet] Budesonide/Formeterol Fumarate 1 inh PO DAILY 11/08/17 [SYMBICORT 160/4.5mcg -] Glucosamine/MSM/Chondroit/C/Mn 1 each PO DAILY 11/08/17 [Flexi Joint Tablet] Pantoprazole Sodium [Protonix] 40 mg PO DAILY 11/08/17 Simvastatin [Zocor] 40 mg PO HS 11/08/17 Satellite Physical Exam - Physical Examination Vital Signs: Vital Signs Period Temp Pulse Resp BP Sys/Lopez Pulse Ox Last 24 Hr 97.2 F 70 18 132/72 General Appearance: Well Nourished, Well Developed, Alert & Oriented x3 ENT: Clear Lung: Normal air movement Heart: Regular rate & rhythm Extremities: Other (right hip- + ttp, decr rom, nvi xrays show grade 4 hip djd) Neurological: Intact, Alert, Oriented Satellite Impression/Plan - Impression/Plan Impression: right hip djd Operative Procedure: right dilip thr Date to be Performed: 11/22/17
[2017-11-22] MEDS ORDERED: MIDAZOLAM HCL 2 MG/2 ML SINGLE DOSE VIAL ONE (08:41)
[2017-11-22] MEDS ORDERED: DEXAMETHASONE SOD PHOSPHATE/PF 10 MG/ML SDV ONE (08:41)
[2017-11-22] MEDS ORDERED: LIDOCAINE 1% P/F 10 MG/ML VIAL ONE (08:42)
[2017-11-22] MEDS ORDERED: BUPIVACAINE HCL/PF (5 MG/ML) 30 ML VIAL IJ ONE (08:42)
[2017-11-22] MEDS ORDERED: BUPIVACAINE HCL/PF 0.5% (5MG/ML) 10 ML VIAL ONE (09:04)
[2017-11-22] MEDS ORDERED: TRANEXAMIC ACID 1000 MG/10 ML VIAL ONE ×2 (09:50→11:18)
[2017-11-22] MEDS ORDERED: VANCOMYCIN 1,000 MG VIAL (RESTRICTED TO ID ONLY) IVPB ONE (10:25)
[2017-11-22] MEDS ORDERED: ceFAZolin SODIUM 1 GM VIAL IVPB ONE (10:25)
[2017-11-22] MEDS ORDERED: ONDANSETRON 4 MG/2 ML VIAL IVPUSH PRN ×2 (11:32→12:21)
[2017-11-22] MEDS ORDERED: MAG HYDROX/AL HYDROX/SIMETH 30 ML UNIT-DOSE CUP PO PRN (11:32)
[2017-11-22] MEDS ORDERED: MAGNESIUM HYDROX 2400MG/30ML ORAL SUSPENSION 30 ML CUP PO PRN (11:32)
--- NOTE | 2017-11-22 11:32 | OP ---
Operative Note - Note: Operative Date: 11/22/17 Pre-Operative Diagnosis: DJD R HIP Operation: R JOSE MAKOPLASTY Post-Operative Diagnosis: Same as Pre-op Surgeon: Petar Albarran Dictaphone Technician: Blair De Dios Anesthesia: Spinal Estimated Blood Loss (mls): 50 Operative Report Dictated: Yes
[2017-11-22] MEDS ORDERED: LACTATED RINGERS SOLUTION 1,000 ML IV SCH (11:45)
[2017-11-22] MEDS ORDERED: oxyCODONE HCL 5 MG TABLET PO PRN (12:21)
[2017-11-22] MEDS ORDERED: PROMETHAZINE HCL 25 MG/1 ML VIAL IVPUSH PRN (12:21)
[2017-11-22] MEDS ORDERED: ACETAMINOPHEN 325 MG TABLET (FP) PO ONE (12:30)
[2017-11-22] MEDS ORDERED: oxyCODONE HCL 5 MG TABLET PO ONE (12:44)
--- NOTE | 2017-11-22 13:11 | SPEC ---
DATE OF OPERATION: 11/22/2017 PREOPERATIVE DIAGNOSIS: Degenerative joint disease right hip. POSTOPERATIVE DIAGNOSIS: Degenerative joint disease right hip. PROCEDURE PERFORMED: Right total hip replacement with robotic-assisted navigation (MAKOplasty). SURGICAL ATTENDING: Petar Albarran MD GASOLINE ENGINE ASSEMBLER: OANH Boyer ANESTHESIA: Regional and spinal. CLOSURE: A Trident II press-fit 52-mm acetabulum, with a standard 36 metallic head and an Accolade II size 7 femoral stem with a No. 1 Vicryl for fascia, 0 and 2-0 subcutaneous, and 3-0 V-Loc for skin, 4-0 undyed Vicryl with skin glue for pin sites. ESTIMATED BLOOD LOSS: Less than 100 mL. COMPLICATIONS: None. CONDITION: To the recovery room in stable condition. DESCRIPTION OF PROCEDURE: The patient was taken to the operating room on November 22, 2017. General and regional anesthesia was administered by the anesthesiologist. IV Kefzol and TXA were administered prophylactically prior to the case. The patient was placed in the lateral decubitus position will all prominences well-padded. The right hip area was prepped and draped in the usual sterile fashion. Using 3 small stab incisions over the iliac crest, 3 threaded pins were drilled in power fashion through the 2 tables of the crest. These pins were fastened and the navigation array for the Sivakumar navigation system. Next, a 12 to 15-cm curved longitudinal incision over the posterolateral aspect of the greater trochanter was incised. Hemostasis was achieved with Bovie cautery. Sharp dissection was carried down to level of the fascia. The fascia was opened the entire length of the incision, spreading the fibers of the gluteus edward in the direction of origin. A Charnley retractor was placed in this layer. Care was taken not to impale the sciatic nerve. The short external rotators were detached off the insertion of the greater trochanter and peeled off the capsule. A posterior capsulotomy was then performed. A check point was malleted into the greater trochanter and a point on the inferior pole of the patella was obtained as well. These 2 points were used to assess the preoperative offset and limb lengths of the hip. The hip was then dislocated. The femoral neck was then osteotomized down to the appropriate level as directed by the navigation device. Anterior and posterior retractors were placed, exposing the acetabulum. A circumferential labral excision was performed. A check point was malleted into the acetabulum as well. Multiple sites inside the acetabulum and around the rim were utilized to register the acetabulum with the navigation device. An excellent registration of less than 0.5 mm was obtained. The hip was then reamed with the appropriate reamer down to the appropriate depth, with the appropriate orientation and version as assessed on our preoperative plan for this patient. The reamer was removed and the acetabulum was inspected to have good bleeding surfaces throughout. The real acetabular cup was then malleted down into place, with the holes in the appropriate position, until an excellent fixation was obtained. No screws were necessary. The navigation device ensured appropriate orientation and version, with the depth as predetermined. The appropriate liner was then clipped into place. Attention was directed to the femur. The proximal femur was prepared by use a box chisel, a canal finder and serial broaches until the broach achieved excellent rigidity in the proximal femur with the appropriate version being applied. A calcar planer was used to smooth off the calcar flush with the trial components. A trial reduction with the appropriate head was done, and the hip was reduced. The hip was taken through a range of motion from full extension with external rotation to marked flexion, and was stable at 90 degrees of flexion. It was stable to marked abduction and internal rotation, with a positive hang test and negative telescoping. Limb lengths were ascertained visually as well as with the navigation device to be within the targeted range for this patient. The trial component was removed. The real component was then malleted into place. The head was cold welded to the trunnion, and the hip was reduced. Range of motion, stability and limb lengths were as described in the trial component. Then the hip was pulse antibiotic irrigated. Vancomycin powder was placed in the hip joint. The capsule was closed. The fascia was then closed as well using number 1 Vicryl interrupted suture, 0 and 2-0 subcutaneous, and 3-0 V-Loc for the skin. 4-0 undyed Vicryl was used to close the pin sites after the pins were removed. All check points were also removed. Sterile Aquacel dressing was applied. The patient was awakened from anesthesia and transferred into the supine position. Bilateral SCDs and an abduction pillow were placed. X-rays revealed excellent position of the components. The patient was transferred to the recovery room in stable condition, with no complications. Estimated blood loss was less than 100 milk Loretta [id number]
[2017-11-22] MEDS: ACETAMINOPHEN 325 MG TABLET (FP) PO SCH ×2 (14:21→17:38)
[2017-11-22] MEDS: sitaGLIPtin PHOSPHATE 50 MG TABLET PO SCH (16:38)
[2017-11-22] MEDS: metFORMIN HCL 500 MG TABLET (FP) PO SCH (16:38)
[2017-11-22] MEDS: INSULIN SLIDING SCALE (NOVOLOG) 1 VIAL SQ SCH ×2 (16:38→22:29)
[2017-11-22] MEDS: CEFAZOLIN 1 GM/D5W 1 GRAM/50 ML BAG IVPB SCH (17:52)
[2017-11-22] MEDS: oxyCODONE HCL 5 MG TABLET PO PRN (21:10)
[2017-11-22] MEDS: oxyCODONE HCL 10 MG SUSTAINED ACTING TABLET PO SCH (21:11)
[2017-11-22] MEDS: ATORVASTATIN CA 20 MG TABLET (FP) PO SCH (21:11)
[2017-11-22] MEDS: SENNOSIDES/DOCUSATE COMBO (SENNA PLUS) TABLET (UD) PO SCH (21:11)
[2017-11-22] MEDS: GABAPENTIN 300 MG CAPSULE (FP) PO SCH (21:11)
[2017-11-22] MEDS ORDERED: PATIENT'S OWN MEDICATION (NON-FORMULARY) (Simvastatin [Zocor] 40 MG) PO SCH (22:00)
[2017-11-22] MEDS ORDERED: PATIENT'S OWN MEDICATION (NON-FORMULARY) (Sitagliptin Phos/Metformin Hcl [Janumet 50-1,000 PO SCH (22:00)
[2017-11-22] MEDS ORDERED: INSULIN (NOVOLOG) ASPART 100 UNITS/ML 10ML VIAL ONE (22:33)
[2017-11-23] MEDS: CEFAZOLIN 1 GM/D5W 1 GRAM/50 ML BAG IVPB SCH (01:08)
[2017-11-23] MEDS: ACETAMINOPHEN 325 MG TABLET (FP) PO SCH ×4 (01:08→18:10)
[2017-11-23] MEDS: oxyCODONE HCL 5 MG TABLET PO PRN ×2 (01:09→05:36)
[2017-11-23] MEDS: LEVOTHYROXINE NA 25 MCG TABLET (FP) PO SCH (06:15)
[2017-11-23] MEDS: metFORMIN HCL 500 MG TABLET (FP) PO SCH ×2 (06:15→16:47)
[2017-11-23] MEDS: sitaGLIPtin PHOSPHATE 50 MG TABLET PO SCH ×2 (06:15→16:48)
[2017-11-23] MEDS: INSULIN SLIDING SCALE (NOVOLOG) 1 VIAL SQ SCH ×3 (06:43→16:50)
[2017-11-23] MEDS ORDERED: GEMFIBROZIL 600 MG TABLET (FP) PO SCH (07:30)
[2017-11-23 08:16] LABS: HEMATOCRIT 40.7 % (35.4-49); HEMOGLOBIN 13.7 GM/dl (11.7-16.9); MCH 32.5 pg (25.7-33.7); MCHC 33.8 g/dl (32.0-35.9); MEAN CELL VOLUME 96.1 fl (80-96); MEAN PLT VOLUME 9.4 fl (7.5-11.1); PLATELET COUNT 235 K/MM3 (134-434); RBC 4.23 M/mm3 (4.00-5.60); RDW 12.4 % (11.9-15.9); WHITE BLOOD COUNT 17.1 K/mm3 (4.0-10.8)
[2017-11-23] MEDS: ASPIRIN 325 MG TABLET PO SCH (08:22)
--- NOTE | 2017-11-23 08:59 | PN ---
Progress Note (short form) - Note Progress Note: Ortho Pt seen and examined s/p right dilip thr pod #1 Selected Entries 11/23/17 05:24 Temperature 97.8 F Pulse Rate 81 Respiratory 20 Rate Blood Pressure 128/67 Laboratory Tests 11/23/17 07:30 WBC 17.1 H Hgb 13.7 Hct 40.7 Plt Count 235 dressing c/d/i, calf soft, nt nvi a/p PT hip precautions dvt ppx pain control d/c home tomorrow if stable
[2017-11-23 09:03] LABS: ANION GAP 9 (8-16); BLOOD UREA NITROGEN 18 mg/dl (7-18); CALCIUM 9.3 mg/dl (8.4-10.2); CHLORIDE 102 mmol/L (98-107); CO2 23 mmol/L (22-28); CREATININE 0.7 mg/dl (0.6-1.3); GLUCOSE,RANDOM 191 mg/dl (74-106); POTASSIUM 4.5 mmol/L (3.5-5.1); SODIUM 134 mmol/L (136-145)
[2017-11-23] MEDS ORDERED: CHONDROIT PO SCH (10:00)
[2017-11-23] MEDS ORDERED: [UNRECOGNIZED DRUG - OTHER] PO SCH (10:00)
[2017-11-23] MEDS ORDERED: MSM PO SCH (10:00)
[2017-11-23] MEDS ORDERED: GLUCOSAMINE PO SCH (10:00)
[2017-11-23] MEDS ORDERED: PATIENT'S OWN MEDICATION (NON-FORMULARY) (Omega-3/Dha/Epa/Fish Oil [Fish Oil 1,000 Mg Soft PO SCH (10:00)
[2017-11-23] MEDS ORDERED: [UNRECOGNIZED DRUG - OTHER] PO SCH (10:00)
[2017-11-23] MEDS: VALSARTAN 160 MG TABLET (UD) PO SCH (10:26)
[2017-11-23] MEDS: amLODIPine BESYLATE 5 MG TABLET (FP) PO SCH (10:26)
[2017-11-23] MEDS: MULTIVITAMINS (DAILY MVI) TABLET (FP) PO SCH (10:27)
[2017-11-23] MEDS: GABAPENTIN 300 MG CAPSULE (FP) PO SCH ×2 (10:27→21:25)
[2017-11-23] MEDS: ESCITALOPRAM OXALATE 10 MG TABLET (FP) PO SCH (10:27)
[2017-11-23] MEDS: PANTOPRAZOLE 40 MG TABLET (FP) PO SCH (10:28)
[2017-11-23] MEDS: SENNOSIDES/DOCUSATE COMBO (SENNA PLUS) TABLET (UD) PO SCH ×2 (10:28→21:25)
[2017-11-23] MEDS: ALLOPURINOL 100 MG TABLET (FP) PO SCH (10:28)
[2017-11-23] MEDS: BUDESONIDE/FORMETEROL FUMARATE 160/4.5 mcg INHALER IH SCH (10:29)
[2017-11-23] MEDS: oxyCODONE HCL 10 MG SUSTAINED ACTING TABLET PO SCH ×2 (10:29→21:24)
--- NOTE | 2017-11-23 11:21 | PN ---
Progress Note (short form) - Note Progress Note: Anesthesia POSTOP 77 yo male POD#1 s/p RTHA under spinal anesthetic with PNB for post operative pain control Patient doing well. Actively participating in PT. Tolerating PO. Pain well controlled. VSS, Afebrile, motor intact No anesthetic complications, doing well. Continue current care.
[2017-11-23] MEDS ORDERED: INSULIN (NOVOLOG) ASPART 100 UNITS/ML 10ML VIAL ONE ×2 (11:34→17:25)
[2017-11-23] MEDS: ATORVASTATIN CA 20 MG TABLET (FP) PO SCH (21:25)
[2017-11-23 22:59] VITALS: PULSE 69
[2017-11-24] MEDS: ACETAMINOPHEN 325 MG TABLET (FP) PO SCH ×3 (01:13→10:00)
[2017-11-24] MEDS: oxyCODONE HCL 5 MG TABLET PO PRN (01:14)
[2017-11-24 06:37] VITALS: BP 121/54; TEMP 97.2
[2017-11-24] MEDS: sitaGLIPtin PHOSPHATE 50 MG TABLET PO SCH (06:42)
[2017-11-24] MEDS: metFORMIN HCL 500 MG TABLET (FP) PO SCH (06:42)
[2017-11-24] MEDS: INSULIN SLIDING SCALE (NOVOLOG) 1 VIAL SQ SCH ×2 (06:42→14:45)
[2017-11-24] MEDS: LEVOTHYROXINE NA 25 MCG TABLET (FP) PO SCH (06:42)
[2017-11-24 08:12] LABS: HEMATOCRIT 39.8 % (35.4-49); HEMOGLOBIN 13.3 GM/dl (11.7-16.9); MCH 31.6 pg (25.7-33.7); MCHC 33.4 g/dl (32.0-35.9); MEAN CELL VOLUME 94.7 fl (80-96); MEAN PLT VOLUME 9.3 fl (7.5-11.1); PLATELET COUNT 212 K/MM3 (134-434); RBC 4.21 M/mm3 (4.00-5.60); RDW 12.7 % (11.9-15.9); WHITE BLOOD COUNT 12.7 K/mm3 (4.0-10.8)
--- NOTE | 2017-11-24 08:48 | PN ---
Progress Note (short form) - Note Progress Note: Ortho Pt seen and examined s/p right dilip thr pod #2 Selected Entries 11/24/17 06:00 Temperature 97.2 F L Pulse Rate 69 Respiratory 18 Rate Blood Pressure 121/54 Laboratory Tests 11/24/17 07:30 WBC 12.7 H Hgb 13.3 Hct 39.8 Plt Count 212 dressing c/d/i, calf soft, nt nvi a/p PT hip precautions dvt ppx pain control d/c home today f/u in 1 week
--- NOTE | 2017-11-24 08:49 | DS ---
Physical Examination Vital Signs: Vital Signs Temperature 97.2 F L 11/24/17 06:00 Pulse Rate 69 11/24/17 06:00 Respiratory Rate 18 11/24/17 06:00 Blood Pressure 121/54 11/24/17 06:00 O2 Sat by Pulse Oximetry (%) 100 11/23/17 22:15 Labs: CBC, BMP 11/24/17 07:30 11/23/17 07:30 Discharge Summary Reason For Visit: OSTEOARTHRITIS Procedures: Principal: right thr Hospital Course: admitted for elective right dilip thr, uneventful post-op, stable for d/c Condition: Good - Instructions Diet, Activity, Other Instructions: Post-op Instructions-Total Hip Replacement Call the office for a follow-up appointment in 1 week - [phone] Aspirin 325mg daily for 6 weeks. Pain medication was sent into your pharmacy. Apply Graduated Compression Stockings (TEDs) to both lower extremities- remove daily for hygiene ONLY Apply Sequential Compression Device (SCDs) to both Lower extremities remove for PT and hygiene ONLY Apply cold packs to affected area for 15 minutes every 2 hours. Physical Therapist will come to your home for the first 5 days. You will be set up with outpatient PT at your first post-operative visit. Patient may ambulate as tolerated-encourage self care (at least every 2-3 hours while awake) with walker or cane Maintain Aquacel (waterproof) dressing to operative wound (will be removed by surgeon at first office visit) Shower with Aquacel dressing in place-if Aquacel integrity compromised, remove and apply dry sterile dressing and notify Orthopedist. DO NOT SHOWER unless Orthopedists approves without Aquacel dressing CONTACT THE OFFICE FOR ANY CHANGE IN YOUR CONDITION (for example-fever greater than 102 degrees, excessive bleeding from operative site, purulent drainage, severe swelling or pain) GO TO THE EMERGENCY ROOM IF THERE IS A MEDICAL EMERGENCY Hip Precautions: * Keep a rolled towel under affected heel while in bed or chair (to keep knee in extension) * Dependent upon approach: * Posterior - do not cross legs; do not sit on low chairs or toilets. * If you have any questions, please do not hesitate to call the office - . Referrals: Petar Albarran MD [Staff Physician] - Disposition: VNS/HOME HEALTH CARE - Home Medications Comprehensive Discharge Medication List: Ambulatory Orders Aspirin [Baby Aspirin] 81 mg PO DAILY #0 tab.chew 08/11/11 Amlodipine Besylate [Norvasc -] 5 mg PO DAILY 10/12/11 Levothyroxine [Synthroid -] 25 mcg PO DAILY 10/12/11 Escitalopram Oxalate [Lexapro -] 10 mg PO DAILY 07/19/13 Gemfibrozil 600 mg PO DAILY 07/19/13 Valsartan [Diovan] 160 mg PO DAILY 07/19/13 Allopurinol 100 mg PO DAILY 09/24/16 Mv-Min/FA/Vit K/Lycop/Lut/Zeax [Ocuvite Eye Plus Multi Tablet] 1 each PO DAILY 09/24/16 [place]-3/Dha/Epa/Fish Oil [Fish Oil 1,000 mg Softgel] 1,000 mg PO DAILY 09/24/16 Sitagliptin Phos/Metformin HCl [Janumet 50-1,000 mg Tablet] 1 each PO BID Budesonide/Formeterol Fumarate [SYMBICORT 160/4.5mcg -] 1 inh PO DAILY 11/08/17 Glucosamine/MSM/Chondroit/C/Mn [Flexi Joint Tablet] 1 each PO DAILY 11/08/17 Pantoprazole Sodium [Protonix] 40 mg PO DAILY 11/08/17 Simvastatin [Zocor] 40 mg PO HS 11/08/17 Aspirin [ASA -] 325 mg PO DAILY@0800 tablet 11/22/17 Oxycodone HCl/Acetaminophen [Percocet 5-325 mg Tablet -] 1 - 2 tab PO Q6H #50 tab MDD 8 11/22/17
[2017-11-24] MEDS: GABAPENTIN 300 MG CAPSULE (FP) PO SCH (10:00)
[2017-11-24] MEDS: amLODIPine BESYLATE 5 MG TABLET (FP) PO SCH (10:00)
[2017-11-24] MEDS: MULTIVITAMINS (DAILY MVI) TABLET (FP) PO SCH (11:20)
[2017-11-24] MEDS: VALSARTAN 160 MG TABLET (UD) PO SCH (11:20)
[2017-11-24] MEDS: PANTOPRAZOLE 40 MG TABLET (FP) PO SCH (11:20)
[2017-11-24] MEDS: ASPIRIN 325 MG TABLET PO SCH (11:20)
[2017-11-24] MEDS: oxyCODONE HCL 10 MG SUSTAINED ACTING TABLET PO SCH (11:21)
[2017-11-24] MEDS: ESCITALOPRAM OXALATE 10 MG TABLET (FP) PO SCH (11:21)
[2017-11-24] MEDS: SENNOSIDES/DOCUSATE COMBO (SENNA PLUS) TABLET (UD) PO SCH (11:22)
[2017-11-24] MEDS: ALLOPURINOL 100 MG TABLET (FP) PO SCH (11:22)
[2017-11-24] MEDS: BUDESONIDE/FORMETEROL FUMARATE 160/4.5 mcg INHALER IH SCH (11:22)
--- NOTE | 2017-11-24 16:03 | PATH ---
Surgical Pathology Report Patient Name: RITO LEWIS Med. Rec. #: [id number] /Age/Gender: 1940 (Age: 77) / M Account: [id number] Location: [facility] MED-SURG Taken: 11/22/2017 Received: 11/22/2017 Reported: 11/24/2017 Physicians: Petar Albarran M.D. Specimen(s) Received RIGHT FEMORAL HEAD Clinical History Right hip osteoarthritis Final Diagnosis RIGHT FEMORAL HEAD, RESECTION: DEGENERATIVE JOINT DISEASE, RIGHT HIP. Electronically Signed Yolanda Blanton M.D. Gross Description Received in formalin, labeled "right femoral head," is a 4.4 x 4.4 x 4.0 cm. femoral head with a 1.3 cm in length portion of femoral neck attached. The margin of resection is smooth. No areas of eburnation are identified. The articular surface is funez-yellow and focally granular. The underlying trabecular bone is yellow, hard and displays focal possible necrosis. [employer] sections are submitted in one cassette, following decalcification. /11/23/2017 [facility]11/23/2017
== END 2017-11-24 12:30 | disposition home health service (06) | DRG 470 ==
LOC: FM/S 06:22
PROVIDERS: ADMIT Orthopaedic Surgery; ATTEND Orthopaedic Surgery
PROC: 8E0Y0CZ Robotic Assisted Procedure of Lower Extremity, Open Approach (ICD-10-PCS; 2017-11-22)
PROC: 0SR901A Replacement of Right Hip Joint with Metal Synthetic Substitute, Uncemented, Open Approach (ICD-10-PCS; principal; 2017-11-22 10:14)
DX: M16.11 Unilateral primary osteoarthritis, right hip (principal)
CPT/HCPCS: 36415; 73523-TC-FY; 80048; 82962; 85027; 88304-TC; 88311-TC; 94760; 97116-GP; 97162-GP

== ENCOUNTER 2018-04-18 09:39 | Day surgery (SDC) | payer OTHER ==
--- NOTE | 2018-04-18 08:47 | HP ---
Satellite [facility] - Chief Complaint Chief Complaint: left knee pain - Past Medical History Allergies/Adverse Reactions: Allergies Allergy/AdvReac Type Severity Reaction Status Date / Time latex Allergy Severe Rash Verified 04/10/18 10:39 Latex, Natural Rubber Allergy Severe Rash Verified 04/10/18 10:39 - Current Medications Current Medications: Home Medications Medication Instructions Recorded Aspirin [Baby Aspirin] 81 mg PO DAILY #0 tab.chew 08/11/11 Amlodipine Besylate [Norvasc -] 5 mg PO DAILY 10/12/11 Levothyroxine [Synthroid -] 25 mcg PO DAILY 10/12/11 Escitalopram Oxalate [Lexapro -] 10 mg PO DAILY 07/19/13 Gemfibrozil 600 mg PO DAILY 07/19/13 Valsartan [Diovan] 160 mg PO DAILY 07/19/13 Allopurinol 100 mg PO DAILY 09/24/16 Mv-Min/FA/Vit K/Lycop/Lut/Zeax 1 each PO DAILY 09/24/16 [Ocuvite Eye Plus Multi Tablet] [place]-3/Dha/Epa/Fish Oil [Fish Oil 1,000 mg PO DAILY 09/24/16 1,000 mg Softgel] Sitagliptin Phos/Metformin HCl 1 each PO BID 09/24/16 [Janumet 50-1,000 mg Tablet] Budesonide/Formeterol Fumarate 1 inh PO DAILY 11/08/17 [SYMBICORT 160/4.5mcg -] Glucosamine/MSM/Chondroit/C/Mn 1 each PO DAILY 11/08/17 [Flexi Joint Tablet] Pantoprazole Sodium [Protonix] 40 mg PO ACDIN 11/08/17 Simvastatin [Zocor] 40 mg PO HS 11/08/17 Cholecalciferol (Vitamin D3) 2,000 unit PO DAILY 04/10/18 [Vitamin D] Satellite Physical Exam - Physical Examination General Appearance: Well Nourished, Well Developed, Alert & Oriented x3 ENT: Clear Lung: Normal air movement Heart: Regular rate & rhythm Extremities: Other (left knee- + swelling, + ttp medially, decr rom, nvi xrays show grade 4 medial djd) Neurological: Intact, Alert, Oriented Satellite Impression/Plan - Impression/Plan Impression: left knee medial djd Operative Procedure: left medial dilip ukr Date to be Performed: 04/18/18
[2018-04-18] MEDS ORDERED: CELECOXIB 200 MG CAPSULE PO ONE (09:50)
[2018-04-18] MEDS ORDERED: CEFAZOLIN 2 GM in DEXTROSE 5%-WATER - 50 ML IVPB ONE (09:50)
[2018-04-18] MEDS ORDERED: TRANEXAMIC ACID 1000 MG/10 ML VIAL IVPUSH ONE (09:50)
[2018-04-18] MEDS ORDERED: GABAPENTIN 300 MG CAPSULE (FP) PO ONE (09:50)
[2018-04-18] MEDS ORDERED: ROPIVICAINE 0.2%/MORPH PF/KETOROLAC - 51ML DISP.SYRINGE IA ONE ×4 (09:50→13:37)
[2018-04-18] MEDS ORDERED: oxyCODONE HCL 10 MG SUSTAINED ACTING TABLET PO ONE (09:50)
[2018-04-18] MEDS ORDERED: ONDANSETRON 4 MG/2 ML VIAL ONE (10:36)
[2018-04-18] MEDS ORDERED: DEXAMETHASONE SOD PHOSPHATE 4 MG/1 ML VIAL ONE (10:36)
[2018-04-18] MEDS ORDERED: ceFAZolin SODIUM 1 GM VIAL ONE ×2 (10:36→11:11)
[2018-04-18] MEDS ORDERED: BUPIVACAINE HCL/PF 0.5% (5MG/ML) 10 ML VIAL ONE (10:38)
[2018-04-18 10:41] VITALS: BMI 29.0
[2018-04-18] MEDS ORDERED: THROMBIN (RECOMBINANT) 5,000 UNIT VIAL TP ONE (11:11)
[2018-04-18] MEDS ORDERED: GELATIN, ABSORBABLE 100 EACH SPONGE TP ONE ×3 (11:12→13:37)
[2018-04-18] MEDS ORDERED: DEXAMETHASONE SOD PHOSPHATE/PF 10 MG/ML SDV ONE (11:27)
[2018-04-18] MEDS ORDERED: MIDAZOLAM HCL 2 MG/2 ML SINGLE DOSE VIAL ONE ×2 (11:30→12:50)
[2018-04-18] MEDS ORDERED: BUPIVACAINE HCL/PF (5 MG/ML) 30 ML VIAL IJ ONE (11:32)
[2018-04-18] MEDS ORDERED: TRANEXAMIC ACID 1000 MG/10 ML VIAL ONE ×2 (12:30→13:44)
[2018-04-18] MEDS ORDERED: THROMBIN (BOVINE) 5,000 UNIT VIAL TP ONE ×2 (12:50→13:37)
[2018-04-18] MEDS ORDERED: MAG HYDROX/AL HYDROX/SIMETH 30 ML UNIT-DOSE CUP PO PRN (13:57)
[2018-04-18] MEDS ORDERED: LACTATED RINGERS SOLUTION 1,000 ML IV SCH (14:00)
--- NOTE | 2018-04-18 14:00 | OP ---
Operative Note - Note: Operative Date: 04/18/18 ([facility]) Pre-Operative Diagnosis: left knee medial djd Operation: left medial dilip ukr Post-Operative Diagnosis: Same as Pre-op Surgeon: Petar Albarran Human Resources Intern: Blair De Dios Anesthesiologist/STONE DRILLER: Shailesh Hernandez Anesthesia: Spinal, Local Specimens Removed: bone fragments Estimated Blood Loss (mls): 100 Operative Report Dictated: Yes
[2018-04-18] MEDS ORDERED: ONDANSETRON 4 MG/2 ML VIAL IVPUSH PRN (15:06)
[2018-04-18] MEDS ORDERED: oxyCODONE HCL 5 MG TABLET PO PRN ×2 (15:08)
[2018-04-18] MEDS: ACETAMINOPHEN 325 MG TABLET (FP) PO SCH ×2 (15:15→21:14)
--- NOTE | 2018-04-18 15:45 | SPEC ---
DATE OF OPERATION: 04/18/2018 PREOPERATIVE DIAGNOSIS: Degenerative joint disease, left knee. POSTOPERATIVE DIAGNOSIS: Degenerative joint disease, left knee. PROCEDURE: Left medial unicompartmental knee replacement with robotic-assisted navigation (MAKOplasty) and patelloplasty. SURGICAL ATTENDING: Petar Albarran MD MANAGER PRODUCT: OANH Boyer ANESTHESIA: Regional and spinal. CLOSURE: Medial LAMIN component with a 4 femur, 4 tibia, and an 8 polyethylene; No. 1 Vicryl, fascia; 0 and 2-0, subcutaneous; 3-0 Monocryl subcuticular with skin glue for skin; 4-0 undyed Vicryl for pin sites. ESTIMATED BLOOD LOSS: Less than 100 mL. COMPLICATIONS: None. CONDITION: To recovery in stable condition. DESCRIPTION OF OPERATIVE PROCEDURE: Patient was taken to the operating room on April 18, 2018. Spinal and regional anesthesia was administered by the anesthesiologist. IV Kefzol and TXA were administered prophylactically prior to the case. A well-padded pneumatic tourniquet was placed on the left proximal thigh. The left lower extremity was prepped and draped in the usual sterile fashion. A 6- to 8-cm longitudinal incision over the medial side of the patella from mid patella to the tibial tubercle was incised and was deepened using Bovie cautery. An arthrotomy was then made just medial to the patellar tendon and the patella. Subperiosteal dissection was done on the anteromedial proximal tibia all the way back to the MCL. Partial fat pad excision was performed, exposing the medial compartment. Checkpoint was malleable at both the femur and the tibia. Using 2 stab incisions in the femur 1 handbreadth above the patella on the femur and 2 stab incisions 1 handbreadth below the tibial tubercle on the tibia, 2 threaded pins were drilled in parallel fashion from anterior to posterior, going through the proximal cortex and engaging the 2nd but not through the 2nd cortex. To these threaded pins were fastened navigation rays, 1 on the femur and 1 on the tibia. The knee was then registered with the navigation device with the center of the rotation of the hip, medial and lateral malleoli, and multiple points both on the femur and on the tibia. Excellent registration of less than 0.5 mm was obtained on both to ensure adequate registration. The navigation device ensured us to "pop the bubbles" both on the femur and the tibia and that was performed and passed registration. The knee was then thoroughly inspected to remove all osteophytes both on the femur and the tibia. Also, osteophytes on the trochlea and on the surface of the patella were removed as well. The knee was then stressed with valgus stress at 0, 30, 60, 90, and 120 degrees of flexion. This propagated a looseness/tightness graft. The virtual positions of the components were then optimized to ensure an excellent graft. The tracking also was optimized by manipulating the virtual position to ensure that the femoral component articulated with the central portion of the tibial component. The robot was then brought into the field and was registered. The robot was used to bur the bone on both the femur and the tibia as to the specifications of the components. The trial components were then applied on both the femur and the tibia with an appropriate polyethylene insert. The knee was taken through a range of motion and found to have full extension, full flexion, with excellent stability. Stressing the graft revealed an excellent looseness/tightness graft with the trial components in place. The trial components were removed. The knee was thoroughly irrigated with a copious amount of antibiotic irrigation. The real components were then cemented in using modern generation cement techniques with antibiotic cement and pressurization. After the cement was hardened, the knee was thoroughly inspected to remove out all excess cement. The real polyethylene insert was then clipped into place. Range of motion and stability were again assessed to be as they were with the trials. At this time, the pins and the checkpoints were removed. The knee was again thoroughly irrigated. The arthrotomy was closed with No. 1 Vicryl, 0 and 2-0 subcutaneous, and 3-0 Monocryl subcuticular with skin glue for the skin, 4-0 undyed Vicryl for the pin sites. Sterile pressure dressing was placed over the knee. Patient awakened from anesthesia and transferred to recovery in stable condition. No complications. Estimated blood loss less than 100 mL. X-rays postoperatively revealed excellent position of the components. Loretta [id number]
[2018-04-18] MEDS ORDERED: PANTOPRAZOLE 40 MG TABLET (FP) PO SCH (16:30)
[2018-04-18] MEDS: sitaGLIPtin PHOSPHATE 50 MG TABLET PO SCH (17:33)
[2018-04-18] MEDS: metFORMIN HCL 500 MG TABLET (FP) PO SCH (17:33)
[2018-04-18] MEDS: INSULIN SLIDING SCALE (NOVOLOG) 1 VIAL SQ SCH ×2 (17:34→21:15)
[2018-04-18] MEDS: CEFAZOLIN 2 GM/D5W 2 GM/50 ML ML IVPB SCH (20:15)
[2018-04-18] MEDS ORDERED: PATIENT'S OWN MEDICATION (NON-FORMULARY) (Sitagliptin Phos/Metformin Hcl [Janumet 50-1,000 PO SCH (22:00)
[2018-04-18] MEDS ORDERED: PATIENT'S OWN MEDICATION (NON-FORMULARY) (Simvastatin [Zocor] 40 MG) PO SCH (22:00)
[2018-04-18] MEDS ORDERED: SENNOSIDES/DOCUSATE COMBO (SENNA PLUS) TABLET (UD) PO SCH (22:00)
[2018-04-18] MEDS ORDERED: ATORVASTATIN CA 20 MG TABLET (FP) PO SCH (22:00)
[2018-04-19] MEDS: CEFAZOLIN 2 GM/D5W 2 GM/50 ML ML IVPB SCH (03:26)
[2018-04-19] MEDS: ACETAMINOPHEN 325 MG TABLET (FP) PO SCH ×3 (03:27→15:00)
[2018-04-19] MEDS: metFORMIN HCL 500 MG TABLET (FP) PO SCH (06:33)
[2018-04-19] MEDS: INSULIN SLIDING SCALE (NOVOLOG) 1 VIAL SQ SCH ×2 (06:34→12:25)
[2018-04-19] MEDS: sitaGLIPtin PHOSPHATE 50 MG TABLET PO SCH (06:34)
[2018-04-19] MEDS ORDERED: LEVOTHYROXINE NA 25 MCG TABLET (FP) PO SCH (07:00)
[2018-04-19] MEDS ORDERED: ASPIRIN 325 MG TABLET PO SCH (08:00)
--- NOTE | 2018-04-19 08:33 | PN ---
Progress Note (short form) - Note Progress Note: Ortho Pt seen and examined s/p left medial dilip ukr pod #1 Selected Entries 04/19/18 06:12 Temperature 97.9 F Pulse Rate 74 Respiratory 18 Rate Blood Pressure 132/73 dressing c/d/i, calf soft, nt rom 0-110, nvi a/p PT dvt ppx pain control d/c home today f/u in 1 week
--- NOTE | 2018-04-19 08:34 | DS ---
Physical Examination Vital Signs: Vital Signs Temperature 97.9 F 04/19/18 06:12 Pulse Rate 74 04/19/18 06:12 Respiratory Rate 18 04/19/18 06:12 Blood Pressure 132/73 04/19/18 06:12 O2 Sat by Pulse Oximetry (%) 98 04/19/18 06:12 Discharge Summary Reason For Visit: OSTEOARTHRITIS Procedures: Principal: left medial dilip ukr Hospital Course: admitted for elective left medial dilip ukr, uneventful post-op, stable for d/c Condition: Good - Instructions Diet, Activity, Other Instructions: Post-op Instructions-Partial Knee Replacement Call the office for a follow-up appointment in 1 week - [phone] Aspirin 325mg daily for 6 weeks. Pain medication was sent into your pharmacy. Apply Graduated Compression Stockings (TEDs) to both lower extremities- remove daily for hygiene ONLY Apply Sequential Compression Device (SCDs) to both Lower extremities remove for PT and hygiene ONLY Apply cold packs to affected area for 15 minutes every 2 hours. Physical Therapist will come to your home for the first 5 days. You will be set up with outpatient PT at your first post-operative visit. Patient may ambulate as tolerated-encourage self care (at least every 2-3 hours while awake) with walker or cane Maintain Aquacel (waterproof) dressing to operative wound (will be removed by surgeon at first office visit) Shower with Aquacel dressing in place-if Aquacel integrity compromised, remove and apply dry sterile dressing and notify Orthopedist. DO NOT SHOWER unless Orthopedists approves without Aquacel dressing CONTACT THE OFFICE FOR ANY CHANGE IN YOUR CONDITION (for example-fever greater than 102 degrees, excessive bleeding from operative site, purulent drainage, severe swelling or pain) GO TO THE EMERGENCY ROOM IF THERE IS A MEDICAL EMERGENCY Knee Precautions: * Keep a rolled towel under affected heel while in bed or chair (to keep knee in extension) * Keep affected leg elevated except during mealtimes * DO NOT PLACE PILLOW UNDER AFFECTED KNEE * If you have any questions, please do not hesitate to call the office - . Referrals: Petar Albarran MD [Staff Physician] - Disposition: VNS/HOME HEALTH CARE - Home Medications Comprehensive Discharge Medication List: Ambulatory Orders Amlodipine Besylate [Norvasc -] 5 mg PO DAILY 10/12/11 Levothyroxine [Synthroid -] 25 mcg PO DAILY 10/12/11 Escitalopram Oxalate [Lexapro -] 10 mg PO DAILY 07/19/13 Gemfibrozil 600 mg PO DAILY 07/19/13 Valsartan [Diovan] 160 mg PO DAILY 07/19/13 Allopurinol 100 mg PO DAILY 09/24/16 Mv-Min/FA/Vit K/Lycop/Lut/Zeax [Ocuvite Eye Plus Multi Tablet] 1 each PO DAILY 09/24/16 [place]-3/Dha/Epa/Fish Oil [Fish Oil 1,000 mg Softgel] 1,000 mg PO DAILY 09/24/16 Sitagliptin Phos/Metformin HCl [Janumet 50-1,000 mg Tablet] 1 each PO BID Budesonide/Formeterol Fumarate [SYMBICORT 160/4.5mcg -] 1 inh PO DAILY 11/08/17 Glucosamine/MSM/Chondroit/C/Mn [Flexi Joint Tablet] 1 each PO DAILY 11/08/17 Pantoprazole Sodium [Protonix] 40 mg PO ACDIN 11/08/17 Simvastatin [Zocor] 40 mg PO HS 11/08/17 Cholecalciferol (Vitamin D3) [Vitamin D3] 2,000 unit PO DAILY 04/10/18 Aspirin [ASA -] 325 mg PO DAILY@0800 tablet 04/18/18 Oxycodone HCl/Acetaminophen [Percocet 5-325 mg Tablet -] 1 - 2 tab PO Q6H #50 tab MDD 8 04/18/18
[2018-04-19] MEDS ORDERED: PT OWN MED DRAWER 7, Y5N ONE (09:09)
[2018-04-19] MEDS ORDERED: VALSARTAN 160 MG TABLET (UD) PO SCH (10:00)
[2018-04-19] MEDS ORDERED: amLODIPine BESYLATE 5 MG TABLET (FP) PO SCH (10:00)
[2018-04-19] MEDS ORDERED: ALLOPURINOL 100 MG TABLET (FP) PO SCH (10:00)
[2018-04-19] MEDS ORDERED: BUDESONIDE/FORMETEROL FUMARATE 160/4.5 mcg INHALER IH SCH (10:00)
[2018-04-19] MEDS ORDERED: MULTIVITAMINS (DAILY MVI) TABLET (FP) PO SCH (10:00)
[2018-04-19] MEDS ORDERED: ESCITALOPRAM OXALATE 10 MG TABLET (FP) PO SCH (10:00)
[2018-04-19 14:04] VITALS: BP 111/48; PULSE 77; TEMP 97.5
--- NOTE | 2018-04-19 15:05 | PN ---
Progress Note (short form) - Note Progress Note: Anesthesia post op note, POD#1 S/P Left knee medial replacement, LAMIN. Under spinal and regional. pat seen and examined. VSS. Ambulating, PT. Pain well controlled. no apparent post anesthesia complications.
[2018-04-19] MEDS ORDERED: GEMFIBROZIL 600 MG TABLET (FP) PO SCH (16:30)
== END 2018-04-19 16:03 | disposition home health service (06) ==
LOC: FASU 09:39 → FASUSAT 09:39 → FM/S 09:50 → FASUSAT 04-19 16:03
PROVIDERS: ATTEND Orthopaedic Surgery
PROC: 8E0YXBZ Computer Assisted Procedure of Lower Extremity (ICD-10-PCS; 2018-04-18)
PROC: 8E0Y0CZ Robotic Assisted Procedure of Lower Extremity, Open Approach (ICD-10-PCS; 2018-04-18)
PROC: 0SRD0L9 Replacement of Left Knee Joint with Medial Unicondylar Synthetic Substitute, Cemented, Open Approach (ICD-10-PCS; principal; 2018-04-18 12:43)
DX: M17.12 Unilateral primary osteoarthritis, left knee (principal)
CPT/HCPCS: 20985; 27446; C1776; S2900; 73560-TC-LT-FY; 82962; 94760; 97116-GP; 97162-GP

== ENCOUNTER 2020-07-11 04:33 | Day surgery (SDC) | payer OTHER ==
[2020-07-09 12:01] VITALS: BMI 26.6
[2020-07-11 11:08] VITALS: TEMP 98
[2020-07-11 11:59] VITALS: BP 121/78; PULSE 77
== END 2020-07-11 12:20 | disposition home or self-care (01) ==
LOC: JASU-ENDO 04:33
PROVIDERS: ATTEND Internal Medicine Gastroenterology
PROC: 0DB48ZX Excision of Esophagogastric Junction, Via Natural or Artificial Opening Endoscopic, Diagnostic (ICD-10-PCS; 2020-07-11)
PROC: 0DB78ZX Excision of Stomach, Pylorus, Via Natural or Artificial Opening Endoscopic, Diagnostic (ICD-10-PCS; 2020-07-11)
PROC: 0DB98ZX Excision of Duodenum, Via Natural or Artificial Opening Endoscopic, Diagnostic (ICD-10-PCS; principal; 2020-07-11 10:30)
DX: K21.00 Gastro-esophageal reflux disease with esophagitis, without bleeding (principal); K29.70 Gastritis, unspecified, without bleeding; K44.9 Diaphragmatic hernia without obstruction or gangrene; K31.7 Polyp of stomach and duodenum; I25.10 Atherosclerotic heart disease of native coronary artery without angina pectoris; I10 Essential (primary) hypertension; Z95.5 Presence of coronary angioplasty implant and graft; E11.9 Type 2 diabetes mellitus without complications; Z79.84 Long term (current) use of oral hypoglycemic drugs; J45.909 Unspecified asthma, uncomplicated; Z86.19 Personal history of other infectious and parasitic diseases; E03.9 Hypothyroidism, unspecified
CPT/HCPCS: 82962; 88305-TC; 88341-TC; 88342-TC

== ENCOUNTER 2021-08-05 04:48 | Day surgery (SDC) | payer OTHER ==
[2021-08-04 08:24] VITALS: BMI 27.6
[2021-08-05 09:16] VITALS: TEMP 98
[2021-08-05 09:46] VITALS: BP 144/77; PULSE 63
== END 2021-08-05 10:10 | disposition home or self-care (01) ==
LOC: JASU-ENDO 04:48
PROVIDERS: ATTEND Internal Medicine Gastroenterology
PROC: 0DBB8ZX Excision of Ileum, Via Natural or Artificial Opening Endoscopic, Diagnostic (ICD-10-PCS; 2021-08-05)
PROC: 0DBH8ZX Excision of Cecum, Via Natural or Artificial Opening Endoscopic, Diagnostic (ICD-10-PCS; principal; 2021-08-05 08:45)
DX: Z12.11 Encounter for screening for malignant neoplasm of colon (principal); Z86.010 Personal history of colon polyps; K57.30 Diverticulosis of large intestine without perforation or abscess without bleeding; K64.8 Other hemorrhoids
CPT/HCPCS: 82962; 88305-TC

== ENCOUNTER 2022-03-13 08:48 | Emergency (ER) | payer OTHER ==
[2022-03-13 08:54] VITALS: BP 128/86; PULSE 88; RESP 20; TEMP 98.2; BMI 25.0
[2022-03-13] MEDS ORDERED: IBUPROFEN 400 MG TABLET (FP) PO ONE ×2 (09:14→09:21)
== END 2022-03-13 11:08 | disposition home or self-care (01) ==
LOC: FER 08:48
DX: S62.315A Displaced fracture of base of fourth metacarpal bone, left hand, initial encounter for closed fracture (principal); M25.512 Pain in left shoulder; W01.0XXA Fall on same level from slipping, tripping and stumbling without subsequent striking against object, initial encounter
CPT/HCPCS: 73030-TC-LT-FY; 73110-TC-LT-FY; 73130-TC-LT-FY; 99284-25

== ENCOUNTER 2022-07-02 08:03 | Emergency (ER) | payer OTHER ==
[2022-07-02 08:14] VITALS: BP 141/92; PULSE 92; RESP 20; TEMP 98; BMI 25.0
[2022-07-02] MEDS ORDERED: AZITHROMYCIN IVPB 500 MG in DEXTROSE 5%-WATER - 250 ML IVPB ONE (08:39)
[2022-07-02] MEDS ORDERED: cefTRIAXone SODIUM 1 GM VIAL ONE ×2 (08:56)
[2022-07-02] MEDS ORDERED: AZITHROMYCIN 500 MG VIAL IVPB ONE (08:56)
[2022-07-02 09:54] LABS: HEMATOCRIT 45.1 % (35.4-49); HEMOGLOBIN 15.7 G/dL (11.7-16.9); MCH 34.2 pg (25.7-33.7); MCHC 34.8 g/dl (32.0-35.9); MEAN CELL VOLUME 98.1 fl (80-96); PLATELET COUNT 234.4 10^3/uL (134-434); RDW 13.4 % (11.9-15.9)
[2022-07-02 10:00] LABS: ALBUMIN 4.1 g/dl (3.4-5.0); BILIRUBIN,TOTAL 0.8 mg/dl (0.2-1); CALCIUM 9.7 mg/dl (8.5-10); CREATININE 0.7 mg/dl (0.55-1.3); TOT PROT 6.5 g/dl (6.4-8.2)
[2022-07-02] MEDS ORDERED: ALBUTEROL SO4 2.5/IPRATROPIUM 0.5 INH SOL 3 ML VIAL.NEB. NEB ONE ×2 (10:15→10:40)
[2022-07-02 10:54] LABS: PLATELET ESTIMATE ADEQUATE
[2022-07-02 11:12] LABS: VENOUS BASE EXCESS 2.5 mmol/L (-2-2); VENOUS O2 SATURATION 58.2 % (70-80); VENOUS PCO2 46.8 mmHg (38-52)
[2022-07-02 11:17] LABS: VENOUS PH 7.4 (7.310-7.410)
[2022-07-02] MEDS ORDERED: predniSONE 20 MG TABLET (UD) PO ONE (11:20)
[2022-07-02] MEDS ORDERED: predniSONE 20 MG TABLET (UD) ONE (11:38)
[2022-07-02 11:48] LABS: N-TERMINAL BNP 71.8 pg/ml (5-450)
== END 2022-07-02 12:14 | disposition home or self-care (01) ==
LOC: FER 08:03
PROC: 3E0F7GC Introduction of Other Therapeutic Substance into Respiratory Tract, Via Natural or Artificial Opening (ICD-10-PCS; principal; 2022-07-02)
PROC: 3E03329 Introduction of Other Anti-infective into Peripheral Vein, Percutaneous Approach (ICD-10-PCS; 2022-07-02)
PROC: 3E03329 Introduction of Other Anti-infective into Peripheral Vein, Percutaneous Approach (ICD-10-PCS; 2022-07-02)
DX: J44.1 Chronic obstructive pulmonary disease with (acute) exacerbation (principal); R05.1 Acute cough
CPT/HCPCS: 0241U-QW; 36415; 71046-TC-FY; 80053; 82803; 83605; 83880; 84484; 85027; 87040; 93005; 99285-25

== ENCOUNTER 2022-09-20 10:53 | Emergency (ER) | payer OTHER ==
[2022-09-20 11:00] VITALS: BP 152/80; PULSE 88; RESP 18; TEMP 98.2; BMI 25.0
[2022-09-20] MEDS ORDERED: LIDOCAINE 5% TOPICAL PATCH TP ONE (11:40)
[2022-09-20] MEDS ORDERED: KETOROLAC TROMETHAMINE 15 MG/ML VIAL IM ONE (11:53)
[2022-09-20] MEDS ORDERED: KETOROLAC TROMETHAMINE 15 MG/ML VIAL ONE (11:54)
[2022-09-20] MEDS ORDERED: LIDOCAINE 5% TOPICAL PATCH ONE (11:54)
[2022-09-20] MEDS ORDERED: LIDOCAINE PATCH REMOVAL MC SCH (22:00)
== END 2022-09-20 15:50 | disposition home or self-care (01) ==
LOC: FER 10:53
PROC: 3E0233Z Introduction of Anti-inflammatory into Muscle, Percutaneous Approach (ICD-10-PCS; principal; 2022-09-20)
DX: S16.1XXA Strain of muscle, fascia and tendon at neck level, initial encounter (principal); X50.1XXA Overexertion from prolonged static or awkward postures, initial encounter; Y93.H2 Activity, gardening and landscaping
CPT/HCPCS: 72125-TC; 72141-TC; 99284-25

== ENCOUNTER 2023-04-14 08:31 | Day surgery (SDC) | payer OTHER ==
[2023-04-11 14:32] VITALS: BMI 25.8
[2023-04-14] MEDS ORDERED: ROPIVACAINE HCL 0.5% 30ML VIAL ONE (09:32)
[2023-04-14] MEDS ORDERED: MIDAZOLAM HCL 2 MG/2 ML SINGLE DOSE VIAL ONE (09:34)
[2023-04-14] MEDS ORDERED: ACETAMINOPHEN INJECTION 100 ML IVPB ONE (09:34)
[2023-04-14] MEDS ORDERED: LIDOCAINE HCL/PF 2% SDV 5ML VIAL ONE (10:11)
[2023-04-14] MEDS ORDERED: PROPOFOL 20 ML ONE (10:12)
[2023-04-14] MEDS ORDERED: KETOROLAC TROMETHAMINE 30 MG/1 ML VIAL ONE ×2 (10:19→11:11)
[2023-04-14] MEDS ORDERED: ceFAZolin SODIUM 1 GM VIAL ONE (10:19)
[2023-04-14] MEDS ORDERED: ONDANSETRON 4 MG/2 ML VIAL ONE ×3 (10:19→13:18)
[2023-04-14] MEDS ORDERED: PROMETHAZINE HCL 25 MG/1 ML VIAL IVPB PRN (12:24)
[2023-04-14] MEDS ORDERED: ONDANSETRON 4 MG/2 ML VIAL IVPUSH PRN (12:24)
[2023-04-14] MEDS ORDERED: oxyCODONE HCL 5 MG TABLET PO PRN ×2 (12:24)
[2023-04-14] MEDS ORDERED: LACTATED RINGERS SOLUTION 1,000 ML IV SCH (12:30)
[2023-04-14 14:14] VITALS: RESP 20
[2023-04-14 16:00] VITALS: BP 139/80; PULSE 84; TEMP 97.1
[2023-04-14] MEDS ORDERED: oxyCODONE HCL 10 MG SUSTAINED ACTING TABLET PO SCH (22:00)
== END 2023-04-14 14:40 | disposition home or self-care (01) ==
LOC: FASU 08:31
PROVIDERS: ATTEND Orthopaedic Surgery
PROC: 0PBN0ZZ Excision of Left Carpal, Open Approach (ICD-10-PCS; 2023-04-14)
PROC: 0RQT0ZZ Repair Left Carpometacarpal Joint, Open Approach (ICD-10-PCS; principal; 2023-04-14 10:40)
DX: M18.12 Unilateral primary osteoarthritis of first carpometacarpal joint, left hand (principal)
CPT/HCPCS: 73110-TC-LT-FY; 73130-TC-LT-FY; 82962; 88304-TC; 88311-TC; 94760